=== PATIENT | female | born 1960 | race Caucasian/White ===

== ENCOUNTER 2019-06-05 15:53 | Inpatient (IN) ==
[2019-06-05] MEDS ORDERED: Acetaminophen 325 MG TABLET PO PRN (17:34)
[2019-06-05] MEDS ORDERED: *HR* FentaNYL (PF) 100 MCG/2 ML VIAL IVP PRN (17:34)
[2019-06-05] MEDS ORDERED: Naloxone 0.4 MG/ML INJ IVP PRN (17:34)
--- NOTE | 2019-06-05 17:58 | Internal Med History&Physical ---
Date of Encounter: 06/05/19 Time of Encounter: 17:50 Internal Medicine - H&P: HPI Chief complaint: Epigastric pain, CP, melena Admitted From: Hospital to Hospital Transfer Plans for Post Hospital Care: Home History of present illness: Ms. Fam is a 58 year old female who presents in transfer from [facility] ER for concerns of acute GI bleed. Her initial symptoms were chest tightness, dyspnea on exertion, and epigastric pain radiating to her right scapula. Workup at [place] revealed patient to have a hgb of 5.8. Three weeks prior, her hemoglobin was 14. Her MCV is normal. All these numbers imply acute blood loss. She reported a history of melena for roughly 1 week. She denied any hematemesis, hematochezia, coffee-ground emesis, hematuria, or nosebleeds. Of note, she had hysterectomy several years ago, and, as such, has no postmenopausal bleeding. I was contacted to transfer the patient here from [facility] and I accepted the patient in transfer. Upon arrival, I saw patient in the ICU room. She has stable blood pressure and her heart rate is in the low 90s to low 100s. She is little pale but otherwise in no distress. She denies any chest pain or shortness of breath now. However, she does confirm some slight epigastric pain radiating to her right shoulder blade. She denies any excessive NSAID use, alcohol use, or excessive caffeine use. She does take a daily aspirin and uses Fosamax once a month for osteoporosis treatment. She has had several EGDs in the past, last one being 04/07/2019. These were negative for any upper GI source of bleeding. She did have a colonoscopy about 2 years ago which was negative as well. She has been on Xarelto for roughly 3 years for treatment of her atrial fibrillation. She denies any trauma or injury to her abdomen or pelvis. She is receiving 1 unit of blood right now from [facility]. Past Med Surg Social Fam HX - Past Medical History Attestation: Yes The following information was validated with the patient. Source: patient, old records reviewed, other (discussion with [facility] staff) Medical history: diabetes, renal disease, GERD, myocardial infarction, atrial fibrillation, hyperlipidemia, hypertension, cardiomyopathy, CHF Additional medical history: CKD Stage III Psychiatric history: anxiety, depression - Past Surgical History Surgical History: appendectomy, cholecystectomy, hysterectomy, orthopedic, other, pacemaker/AICD Additional surgical history: left wrist cyst - heel spur - EGD, [facility] - Social History Smoking Status: Former smoker Smokeless Tobacco Status: No Alcohol use: none Drug use: none Current living situation: Home Activity Level: Independent ambulation Recent Out of Country Travel Within the Last 8 Weeks: No - Family History Brother Living Status: Still Living Hx Family Cardiac Disorders: Yes (CABG) Hx Family Cancer: Yes ((possibly brain)) Mother Family Member Ethnicity: Non- Living Status: Still Living Hx Family Cardiac Disorders: Yes Hx Family Endocrine Disorder: Yes (diabetes) Father Family Member Ethnicity: Non- Living Status: Hx Family Cardiac Disorders: Yes (heart disease) Hx Family Cancer: Yes (CO, CABGx2) Hx Family Endocrine Disorder: Yes (diabetes) Hx Family Autoimmune Disorders: Yes (dementia) Internal Medicine - H&P: Meds Alendronate Sodium [Fosamax] 70 mg PO MO 12/07/17 [History] LORazepam [Ativan] 0.5 mg PO HS PRN 10/06/18 [History] Atorvastatin [Lipitor] 40 mg PO HS 10/15/18 [History] Carvedilol [Coreg] 12.5 mg PO BID 10/15/18 [History] Isosorbide MONOnitrate [Isosorbide Mononitrate ER] 30 mg PO DAILY 10/15/18 [History] Ranitidine HCl [Heartburn Relief] 150 mg PO BID PRN 10/15/18 [History] Aspirin [Adult Aspirin Regimen] 81 mg PO QAM 01/17/19 [History] BuPROPion XL (24 HR) [Wellbutrin Xl] 150 mg PO DAILY 01/17/19 [History] Furosemide [Lasix] 80 mg PO AD PRN 01/17/19 [History] GlipiZIDE [Glucotrol] 5 mg PO BID 01/17/19 [History] Polyethylene Glycol 3350 [MiraLax bowel prep] 17 gm PO DAILY 01/17/19 [History] Potassium Chloride 20 meq PO BID 01/17/19 [History] Rivaroxaban [Xarelto] 15 mg PO HS 01/17/19 [History] Sacubitril/Valsartan 97/103 MG [Entresto 97 mg-103 mg Tablet] 1 tab PO BID 01/17/19 [History] Tizanidine HCl 4 mg PO BID PRN 01/17/19 [History] Furosemide [Lasix] 40 mg PO DAILY #30 tablet 01/23/19 [Rx] hydrALAZINE [HydrALAZINE] 25 mg PO TID PRN #60 tablet 01/23/19 [Rx] Allergy/AdvReac Type Severity Reaction Status Date / Time Tetanus Vaccines and Toxoid Allergy See Verified 04/26/19 09:33 [Tetanus Vaccines & Toxoid] Comments diphenhydramine AdvReac See Verified 04/26/19 09:33 [From Benadryl] Comments morphine AdvReac Itching, Verified 04/26/19 09:33 HEART RACES - Constitutional Constitutional: fatigue, malaise, weakness, no chills, no fever(s), no weight gain, no weight loss - EENT Eyes: no blurry vision, no change in vision Ears: no ear pain Nose, mouth and throat: no epistaxis, no nasal congestion, no sore throat - Cardiovascular Cardiovascular ROS IM: chest pain, dyspnea on exertion, lightheadedness, no dyspnea, no orthopnea, no paroxysmal nocturnal dyspnea, no syncope - Respiratory Respiratory: dyspnea on exertion, no cough, no hemoptysis, no chest congestion, no excessive phlegm production, no change in phlegm color - Gastrointestinal Gastrointestinal: abdominal pain (epigastric radiating to right shoulder blade), constipation, heartburn, melena, no coffee ground emesis, no diarrhea, no hematemesis, no hematochezia, no vomiting - Genitourinary Genitourinary: no dysuria, no flank pain, no hematuria - Musculoskeletal Musculoskeletal ROS IM: no arthralgias, no back pain - Integumentary Integumentary IM: no erythema, no rash, no unusual bruising, no jaundice - Neurological Neurological ROS: dizziness, no focal weakness, no frequent falls, no headache(s) - Psychiatric Psychiatric: no anxiety, no confusion - Endocrine Endocrine IM: no polydipsia, no polyphagia, no polyuria - Hematologic/Lymphatic Hematologic/Lymphatic: easy bruising - Allergic/Immunologic Allergic/Immunologic: GI upset with certain foods - Constitutional Vitals: Pulse Resp BP Pulse Ox 92 18 156/92 99 06/05/19 17:10 06/05/19 17:07 06/05/19 17:07 06/05/19 17:07 General appearance: Present: cooperative, mild distress, A&O X 3, pleasant, answers questions appropriately Exam: pale in complexion; minimal epigastric pain - Head Head exam: Present: atraumatic, normal inspection - Eye Eye exam: Present: EOMI, PERRL. Absent: scleral icterus, conjuntiva pink (pale) Pupils: Present: normal accommodation - ENT ENT exam: Present: mucous membranes dry, normal exam, normal oropharynx - Neck Neck exam general surgery: Present: full ROM, supple, trachea midline. Absent: lymphadenopathy, tenderness, nuchal rigidity, thyromegaly - Respiratory Respiratory exam: Present: CTAB. Absent: chest wall tenderness, rales, rhonchi, wheezes - Cardiovascular Cardiovascular exam: Present: RRR, +S1, +S2. Absent: diastolic murmur, systolic murmur - GI/Abdominal GI/Abdominal exam: Present: normal bowel sounds, soft, tenderness (epigastric), no peritoneal signs. Absent: distended, guarding, hepatomegaly, mass, rebound, splenomegaly - Extremities Exam Extremities exam: Present: full ROM, normal capillary refill (~ 2-3 seconds), warm, radial pulses palpable and symmetrical. Absent: calf tenderness, joint swelling, pedal edema, tenderness - Back Exam Back exam: Absent: CVA tenderness (L), CVA tenderness (R) Additional comments: pain around right scapula - Neurological Exam Neurological exam: Present: alert, CN II-XII intact, oriented X3, reflexes normal, strengths equal and symetr throughout. Absent: motor sensory deficit - Psychiatric Psychiatric exam: Present: normal affect, normal mood - Skin Skin exam: Present: dry, intact, pallor, warm Internal Med - H&P Results - Labs Labs: I reviewed the labs from [facility] and include the following: WBC 6.9 Hemoglobin 5.8 Hematocrit 18.6 Platelets 344 PT 11.7 INR 1.0 PTT 32.7 Sodium 142 Potassium 3.7 Chloride 107 CO2 26 BUN 15 BUN 1.22 - EKG Data -: EKG Interpreted by Myself - EKG Data Prior EKG available for review: yes When compared to previous EKG: there is no significant change EKG comments: 06/05/19 18:09 ventricular paced rhythm - Diagnostic Studies Chest x-ray Status: image reviewed by me (negative) - Assessment and Plan (1) Acute blood loss anemia Current Visit: Yes Status: Acute Assessment and plan: 1. Patient received one unit PRBC (still transfusing) from [place]. 2. Will order STAT labs, Type and Cross, and transfuse 2 more units PRBC's. 3. Will monitor H/H Q6H and monitor clinically in ICU. 4. STAT CT Abdomen/Pelvis to assess for abdominal pain in the setting of GI bleed and anticoagulation. 5. Last Xarelto dose was ~ 24 hours ago. (2) GI bleed Current Visit: Yes Status: Suspected Assessment and plan: 1. Start Protonix and Octreotide drips. 2. Care as above. 3. Consult Acute Care surgery for possible EGD and/or further intervention -- discussed with Dr. Blandon. Qualifiers: GI bleed type/associated pathology: gastroduodenitis Qualified Code(s): K29.91 - Gastroduodenitis, unspecified, with bleeding (3) Chest pain Current Visit: Yes Status: Acute Assessment and plan: 1. Likely due to demand ischemia from acute blood loss. 2. Transfuse PRBC to maintain hgb ~ 10. 3. Will trend troponins and EKG's. 4. Patient reports h/o non-ischemic cardiomyopathy; reports history of normal coronary arteries. However, I have no records to confirm that. Qualifiers: Chest pain type: chest pain due to myocardial ischemia Ischemic chest pain type: stable angina pectoris Qualified Code(s): I20.8 - Other forms of angina pectoris (4) Diabetes mellitus Current Visit: Yes Status: Chronic Assessment and plan: 1. Will monitor glucose closely and order SSI. 2. Adjust insulin dosing accordingly. Qualifiers: Diabetes mellitus type: type 2 Diabetes mellitus jail insulin use: without jail use Diabetes mellitus complication status: without complication Qualified Code(s): E11.9 - Type 2 diabetes mellitus without complications (5) DVT prophylaxis Current Visit: Yes Status: Acute Assessment and plan: 1. EPCD's. - Time Spent With Patient Greater than 35 minutes
[2019-06-05] MEDS ORDERED: D5% in Water 1,000 ML IVC PRN (18:10)
[2019-06-05] MEDS ORDERED: *HR* Dextrose 50 % in Water (Syg) 50 ML SYRINGE IVP PRN (18:10)
[2019-06-05] MEDS ORDERED: Dextrose Gel 15 GM/37.5 ML TUBE PO PRN ×2 (18:10)
[2019-06-05] MEDS: Pantoprazole 40 MG in 0.9 % Sodium Chloride Mini Bag 100 ML IVC SCH ×2 (18:24→22:45)
[2019-06-05] MEDS: Octreotide 400 MCG in 0.9 % Sodium Chloride 100 ML IVC SCH (18:24)
[2019-06-05 18:30] LABS: Basophils % 0.5 %; Eosinophils # 0.1 K/mcL (0.0-0.6); Hematocrit 20.6 % (35.3-44.9); Hemoglobin 6.4 g/dL (11.5-15.4); Immature Granulocytes % 0.5 % (0-4); Lymphocytes # 1.3 K/mcL (0.6-4.6); Lymphocytes % 20.1 %; Mean Corpuscular HGB Conc 31.1 g/dL (31.6-35.5); Mean Corpuscular Hemoglobin 29.6 pg (28.0-33.3); Mean Corpuscular Volume 95.4 fL (83.0-100.0); Mean Platelet Volume 9.6 fL (9.4-12.4); Monocytes # 0.4 K/mcL (0.0-1.3); Monocytes % 5.4 %; Neutrophils # 4.7 K/mcL (1.6-8.9); Platelet Count 327 K/mcL (140-400); Red Blood Count 2.16 M/mcL (3.82-4.97); Segmented Neutrophils % 71.5 %; White Blood Count 6.5 K/mcL (4.3-11.1)
[2019-06-05 18:41] LABS: Prothrombin Time 11.6 Seconds (9.4-12.1)
[2019-06-05 18:43] LABS: Activated Partial Thrombo Time 31.7 Seconds (26.0-36.0)
[2019-06-05 18:50] LABS: Albumin 3.8 g/dL (3.5-5.7); Albumin/Globulin Ratio 1.9 (1.1-2.2); Bilirubin,Total 0.5 mg/dL (0.3-1.0); Calcium 8.6 mg/dL (8.6-10.3); Phosphorous 3.7 mg/dL (2.7-4.5); Potassium 3.7 mEq/L (3.5-5.1); Total Protein 5.8 g/dL (6.4-8.9)
[2019-06-05] MEDS ORDERED: 0.9 % Sodium Chloride 250 ML ONE ×2 (20:46→23:54)
[2019-06-05] MEDS ORDERED: *HR* LORazepam 2 MG/ML VIAL IVP ONE (22:36)
[2019-06-06] MEDS: Insulin LISPRO 300 UNITS/3 ML VIAL SQ SCH ×6 (00:09→23:07)
[2019-06-06] MEDS ORDERED: *HR* LORazepam 0.5 MG TABLET PO ONE ×2 (00:13→07:38)
[2019-06-06] MEDS: Pantoprazole 40 MG in 0.9 % Sodium Chloride Mini Bag 100 ML IVC SCH ×4 (04:05→19:49)
[2019-06-06 05:27] LABS: Hemoglobin 8.6 g/dL (11.5-15.4)
[2019-06-06 05:31] LABS: Calcium 8.4 mg/dL (8.6-10.3)
[2019-06-06] MEDS: Octreotide 400 MCG in 0.9 % Sodium Chloride 100 ML IVC SCH ×3 (06:46→17:16)
[2019-06-06] MEDS ORDERED: *HR* LORazepam 0.5 MG TABLET ONE (07:40)
--- NOTE | 2019-06-06 08:29 | Internal Med Progress Note ---
Hospitalist Progress Note - Encounter Date of Encounter: 06/06/19 Time of Encounter: 08:21 - Subjective Interval History: 58-year-old female with a history of chronic atrial fibrillation on Xarelto as well as aspirin. Patient was admitted to our facility on transfer from [place] emergency room for GI bleed. She has a baseline hemoglobin of around 14, follow [facility] was noted to have a hemoglobin of 5.8, normocytic in nature. Patient did relate that last week she had about a 3 day episode of multiple dark stools. She does not know when her last bowel movement was, although states she has not had a home now for several days. She also complains of epigastric pain. Patient had an EGD done in March 2019, which was negative. She also had a colonoscopy 2 years ago which by report was negative. She has received 3 units of packed red blood cells since presented [place] emergency room. Hemoglobin this morning is 8.6. Vitals are stable. Patient continues to have epigastric discomfort, described as a mild ache which is been persistent for several days. She did have some chest discomfort prior to arrival which is resolved after receiving blood. She has no fevers or chills. No nausea or vomiting. Mentioned she has had no bowel movement for several days which she states is not unusual for her. Patient states she does feel anxious this morning, and is requesting Ativan which she states she takes at home. Patient is to be seen by gastroenterology today. She continues on Protonix as well as octreotide. Patient is stable to transfer to a general medical bed. She did have a CT scan abdomen and pelvis done without contrast, on admission which showed no acute abnormality. - Exam Vitals: Temp Pulse Resp BP Pulse Ox 97.9 F 60 18 146/90 97 06/06/19 07:14 06/06/19 07:00 06/06/19 07:00 06/06/19 07:00 06/06/19 07:00 Exam: General: She is mildly anxious but pleasant and conversant She is mildly obese Skin is warm and dry, mild pallor Oropharynx is moist Neck is supple Heart is irregular rhythm Lungs CTAB Abd - soft + Bs, epig ttp Ext no edema, cap refill <2.5 sec Neuro nonfocal - Assessment and Plan (1) Acute blood loss anemia Current Visit: Yes Status: Acute Assessment and Plan: GI bleed with acute blood loss anemia -Patient is hemodynamically stable after transfusion of 3 units of packed blood cells -It does appear her bleeding has stopped for the time being, GI is consulted -cotninue Protonix and octreotide -Continue to monitor hemoglobin and transfuse as needed Epigastric pain -? If related to abdominal pathology, although CT scan is negative -? Could be gastritis and/or ulcer Anxiety -ativan when necessary, monitor Chest Pain -Suspect due to anemia -She denies history of coronary disease. Recommend future stress test Diabetes mellitus type 2 -Continue sliding scale insulin Patient to be transferred to general medical bed with close observation, telemetry (2) GI bleed Current Visit: Yes Status: Inactive (3) Chest pain Current Visit: Yes Status: Acute (4) Diabetes mellitus Current Visit: Yes Status: Chronic (5) DVT prophylaxis Current Visit: Yes Status: Acute - Time Spent with Patient Total time spent is greater than 50% in coordination of care (as documented) at patient's floor/unit and/or counseling patient: Internal Medicine: Result - Labs CBC & Chem 7: 06/06/19 04:55 06/06/19 04:55 Labs: Short CBC 06/05/19 06/06/19 Range/Units 18:15 04:55 WBC 6.5 (4.3-11.1) K/mcL Hgb 6.4 L 8.6 L D (11.5-15.4) g/dL Hct 20.6 L 27.0 L (35.3-44.9) % Plt Count 327 (140-400) K/mcL Neutrophils # 4.7 (1.6-8.9) K/mcL BMP 06/05/19 06/06/19 18:15 04:55 Sodium 140 139 Potassium 3.7 5.0 D Chloride 113 H 114 H Carbon Dioxide 22 L 23 BUN 15 14 Creatinine 1.19 1.29 H Glucose 103 133 H Calcium 8.6 8.4 L Cardiac Enzymes 06/05/19 06/06/19 Range/Units 18:15 04:55 Troponin I < 0.03 < 0.03 (< 0.04) ng/mL Liver Function 06/05/19 Range/Units 18:15 Total Bilirubin 0.5 (0.3-1.0) mg/dL AST 12 L (13-39) Units/L ALT 10 (7-52) Units/L Alkaline Phosphatase 65 (34-104) Units/L Albumin 3.8 (3.5-5.7) g/dL - ABG Interpretation ABG results: PT/INR, D-dimer PT 11.6 Seconds (9.4-12.1) 06/05/19 18:15 - Impressions Impressions Abdomen/Pelvis CT 06/05/19 20:53 IMPRESSION: 1. No acute abnormality in the abdomen or pelvis. 2. Status post cholecystectomy and hysterectomy. D/ / Braulio Connolly MD / Braulio Connolly MD Interpreting Provider: Braulio Connolly MD Consult Discharge Plan - Plan Referrals: Nidia Galloway [Primary Care Provider] - (2) GI bleed Qualifiers: GI bleed type/associated pathology: gastroduodenitis Qualified Code(s): K29.91 - Gastroduodenitis, unspecified, with bleeding (3) Chest pain Qualifiers: Chest pain type: chest pain due to myocardial ischemia Ischemic chest pain type: stable angina pectoris Qualified Code(s): I20.8 - Other forms of angina pectoris (4) Diabetes mellitus Qualifiers: Diabetes mellitus type: type 2 Diabetes mellitus long term care pharmacist insulin use: without long term care pharmacist use Diabetes mellitus complication status: without complication Qualified Code(s): E11.9 - Type 2 diabetes mellitus without complications
[2019-06-06] MEDS ORDERED: *HR* FentaNYL (PF) 100 MCG/2 ML VIAL IVP ONE (08:34)
[2019-06-06 09:13] LABS: Estimated Average Glucose 91 mg/dl
[2019-06-06] MEDS ORDERED: *HR* FentaNYL (PF) 100 MCG/2 ML VIAL ONE (09:53)
[2019-06-06] MEDS ORDERED: *HR* Midazolam HCl 5 MG/5 ML VIAL IVP ONE (09:54)
[2019-06-06] MEDS ORDERED: *HR* Propofol 200 MG/20 ML VIAL IVP ONE (09:55)
[2019-06-06] MEDS ORDERED: Lidocaine -MPF 2% 2 ML VIAL ONE (09:55)
--- NOTE | 2019-06-06 10:24 | AcuteCare Surgery Consult Note ---
Date of Encounter: 06/06/19 Time of Encounter: 09:25 Assessment and Plan (1) Acute anemia Current Visit: Yes Status: Acute Recommend upper endoscopy. Procedure, risk and benefits of upper endoscopy are discussed. Pt understands risks and possible complications. Possible complications include but, are not limited to bleeding, infection or perforation. Pt understands and wishes to proceed as recommended. Consent is obtained. Inpatient upper endoscopy is scheduled. (2) Epigastric pain Current Visit: Yes Status: Acute Pt on PPI gtt (3) Hypertension Current Visit: No Status: Chronic Qualifiers: Hypertension type: essential hypertension Qualified Code(s): I10 - Essential (primary) hypertension (4) CHF (congestive heart failure) Current Visit: No Status: Chronic Qualifiers: Heart failure type: systolic Heart failure chronicity: chronic Qualified Code(s): I50.22 - Chronic systolic (congestive) heart failure (5) Cardiomyopathy Current Visit: No Status: Chronic Qualifiers: Cardiomyopathy type: unspecified Qualified Code(s): I42.9 - Cardiomyopathy, unspecified History of Present Illness Consult date: 06/06/19 Reason for consult: abdominal pain Requesting physician: Katie Connolly History of present illness: This 58 y/o female is admitted with severe anemia requiring transfusion of 2 units PRBC. Pt also complains of epigastric pain. The epigastric pain is improved since starting PPI gtt. Pt is reporting chest pain that radiates into right shoulder. Denies hematemesis, coffee ground emesis, hematochezia or melena. She denies any N/V or BM changes. Denies fever. Pt reports significant cardiac hx. +pacer/ICD. S/P lap sabas remotely. Past Med Surg Social Fam HX - Past Medical History Medical history: diabetes, renal disease, GERD, myocardial infarction, atrial fibrillation, hyperlipidemia, hypertension, cardiomyopathy, CHF Additional medical history: CKD Stage III Psychiatric history: anxiety, depression - Past Surgical History Surgical History: appendectomy, cholecystectomy, hysterectomy, orthopedic, other, pacemaker/AICD Additional surgical history: left wrist cyst - heel spur - EGD, [place] CARPAL TUNNEL - Social History Smoking Status: Former smoker Smokeless Tobacco Status: No Alcohol use: none Drug use: none - Family History Brother Living Status: Still Living Hx Family Cardiac Disorders: Yes (CABG) Hx Family Cancer: Yes ((possibly brain)) Mother Family Member Ethnicity: Non- Living Status: Still Living Hx Family Cardiac Disorders: Yes Hx Family Endocrine Disorder: Yes (diabetes) Father Family Member Ethnicity: Non- Living Status: Hx Family Cardiac Disorders: Yes (heart disease) Hx Family Cancer: Yes (AR, CABGx2) Hx Family Endocrine Disorder: Yes (diabetes) Hx Family Autoimmune Disorders: Yes (dementia) Medications and Allergies Alendronate Sodium [Fosamax] 70 mg PO MO 12/07/17 [History] LORazepam [Ativan] 0.5 mg PO HS PRN 10/06/18 [History] Atorvastatin [Lipitor] 40 mg PO HS 10/15/18 [History] Carvedilol [Coreg] 12.5 mg PO BID 10/15/18 [History] Isosorbide MONOnitrate [Isosorbide Mononitrate ER] 30 mg PO DAILY 10/15/18 [History] Ranitidine HCl [Heartburn Relief] 150 mg PO BID PRN 10/15/18 [History] Aspirin [Adult Aspirin Regimen] 81 mg PO QAM 01/17/19 [History] Furosemide [Lasix] 80 mg PO AD PRN 01/17/19 [History] GlipiZIDE [Glucotrol] 5 mg PO BID 01/17/19 [History] Polyethylene Glycol 3350 [MiraLax bowel prep] 17 gm PO DAILY 01/17/19 [History] Potassium Chloride 20 meq PO BID 01/17/19 [History] Rivaroxaban [Xarelto] 15 mg PO HS 01/17/19 [History] Sacubitril/Valsartan 97/103 MG [Entresto 97 mg-103 mg Tablet] 1 tab PO BID 01/17/19 [History] Tizanidine HCl 4 mg PO BID PRN 01/17/19 [History] hydrALAZINE [HydrALAZINE] 25 mg PO TID PRN #60 tablet 01/23/19 [Rx] Bupropion HCl [Wellbutrin Xl] 300 mg PO DAILY 06/06/19 [History] Cholecalciferol (D-3) [Vitamin D] 5,000 unit PO DAILY 06/06/19 [History] Sertraline [Zoloft] 150 mg PO DAILY 06/06/19 [History] Allergy/AdvReac Type Severity Reaction Status Date / Time Tetanus Vaccines and Toxoid Allergy See Verified 04/26/19 09:33 [Tetanus Vaccines & Toxoid] Comments diphenhydramine AdvReac See Verified 04/26/19 09:33 [From Benadryl] Comments morphine AdvReac Itching, Verified 04/26/19 09:33 HEART RACES Review of Systems All systems PM: The remainder of the systems were reviewed and are negative - Constitutional as per HPI, fatigue, weakness, no anorexia, no chills, no night sweats - EENT Nose, mouth and throat: no dizziness, no dry mouth, no dysphagia, no nasal congestion, no nasal discharge, no sinus pain, no sinus pressure, no sore throat - Cardiovascular chest pain, chest pain at rest, dyspnea, no diaphoresis, no edema - Respiratory dyspnea, no cough, no wheezing - Gastrointestinal abdominal pain, heartburn, no coffee ground emesis, no constipation, no diarrhea, no hematemesis, no hematochezia, no nausea, no vomiting - Genitourinary Genitourinary: no dysuria, no flank pain, no hematuria, no urinary frequency - Musculoskeletal no back pain, no joint swelling, no limited range of motion, no neck pain - Neurological weakness, no confusion, no dizziness, no focal weakness - Psychiatric no anxiety, no depression - Hematologic/Lymphatic no easy bleeding, no easy bruising General Surgery Exam Initial Vital Signs Pulse Resp BP Pulse Ox 98 18 156/92 99 06/05/19 17:07 06/05/19 17:07 06/05/19 17:07 06/05/19 17:07 - General physical appearance well nourished, no distress, moderate pain. negative: jaundice - Eyes PERRL, normal ocular movement. negative: icteric - ENT normal mucosa, no congestion. negative: nasal discharge - Neck trachea midline, no venous distension - Respiratory normal respiratory effort, clear to auscultation - Cardiovascular Cardiovascular exam: Present: RRR. Absent: JVD - Abdomen Abdomen general surgery: Present: bowel sounds present, soft, tender Abdominal Tenderness: Present: epigastic - Genitourinary Present: normal external genitalia - Integumentary Integumentary general surgery: Present: warm and dry - Neurologic Present: CN 2-12 grossly intact, normal coordination - Musculoskeletal Present: normal posture - Psychiatric Psychiatric general surgery: Present: A&Ox3, appropriate Exam Initial Vital Signs Pulse Resp BP Pulse Ox 98 18 156/92 99 06/05/19 17:07 06/05/19 17:07 06/05/19 17:07 06/05/19 17:07 Results - Labs 06/06/19 04:55 06/06/19 04:55 Abnormal lab results RBC 2.16 M/mcL (3.82-4.97) L 06/05/19 18:15 Hgb 8.6 g/dL (11.5-15.4) L D 06/06/19 04:55 Hct 27.0 % (35.3-44.9) L 06/06/19 04:55 MCHC 31.1 g/dL (31.6-35.5) L 06/05/19 18:15 RDW 15.0 % (11.5-14.5) H 06/05/19 18:15 Chloride 114 mEq/L (98-107) H 06/06/19 04:55 Carbon Dioxide 22 mEq/L (23-29) L 06/05/19 18:15 Creatinine 1.29 mg/dL (0.60-1.20) H 06/06/19 04:55 Est GFR ( Amer) 52 (> 60) L 06/06/19 04:55 Est GFR (Non-Af Amer) 43 (> 60) L 06/06/19 04:55 Glucose 133 mg/dL (70-105) H 06/06/19 04:55 POC Glucose 159 mg/dL (70-99) H 06/06/19 00:05 Calcium 8.4 mg/dL (8.6-10.3) L 06/06/19 04:55 AST 12 Units/L (13-39) L 06/05/19 18:15 Serum Total Protein 5.8 g/dL (6.4-8.9) L 06/05/19 18:15 Globulin 2.0 g/dL (2.4-3.5) L 06/05/19 18:15 Crossmatch See Detail 06/05/19 18:15 Diabetes panel 06/05/19 06/05/19 06/06/19 Range/Units 18:15 18:17 04:55 Sodium 140 139 (136-145) mEq/L Potassium 3.7 5.0 D (3.5-5.1) mEq/L Chloride 113 H 114 H (98-107) mEq/L Carbon Dioxide 22 L 23 (23-29) mEq/L BUN 15 14 (6-20) mg/dL Creatinine 1.19 1.29 H (0.60-1.20) mg/dL Glucose 103 133 H (70-105) mg/dL Hemoglobin A1c 4.8 ( - 5.6) % Calcium 8.6 8.4 L (8.6-10.3) mg/dL AST 12 L (13-39) Units/L ALT 10 (7-52) Units/L Alkaline Phosphatase 65 (34-104) Units/L Albumin 3.8 (3.5-5.7) g/dL Calcium panel 06/05/19 06/06/19 Range/Units 18:15 04:55 Calcium 8.6 8.4 L (8.6-10.3) mg/dL Phosphorus 3.7 (2.7-4.5) mg/dL Albumin 3.8 (3.5-5.7) g/dL Pituitary panel 06/05/19 06/06/19 Range/Units 18:15 04:55 Sodium 140 139 (136-145) mEq/L Potassium 3.7 5.0 D (3.5-5.1) mEq/L Chloride 113 H 114 H (98-107) mEq/L Carbon Dioxide 22 L 23 (23-29) mEq/L BUN 15 14 (6-20) mg/dL Creatinine 1.19 1.29 H (0.60-1.20) mg/dL Glucose 103 133 H (70-105) mg/dL Calcium 8.6 8.4 L (8.6-10.3) mg/dL Adrenal panel 06/05/19 06/06/19 Range/Units 18:15 04:55 Sodium 140 139 (136-145) mEq/L Potassium 3.7 5.0 D (3.5-5.1) mEq/L Chloride 113 H 114 H (98-107) mEq/L Carbon Dioxide 22 L 23 (23-29) mEq/L BUN 15 14 (6-20) mg/dL Creatinine 1.19 1.29 H (0.60-1.20) mg/dL Glucose 103 133 H (70-105) mg/dL Calcium 8.6 8.4 L (8.6-10.3) mg/dL Total Bilirubin 0.5 (0.3-1.0) mg/dL AST 12 L (13-39) Units/L ALT 10 (7-52) Units/L Alkaline Phosphatase 65 (34-104) Units/L Albumin 3.8 (3.5-5.7) g/dL All other labs normal. - Imaging CT scan - abdomen: image reviewed (No acute abnormality in the abdomen or pelvis. Status post cholecystectomy and hysterectomy.) CT scan - pelvis: image reviewed Consult Discharge Plan - Plan Referrals: Nidia Galloway [Primary Care Provider] -
--- NOTE | 2019-06-06 10:38 | Anesthesia Evaluation PreOp ---
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 History: Denies Any Significant HX Other Medical History: Other (epigastric pain) Anesthesia History: No Prior Anesthetic Complications, Past Anesthesia : No Alcohol Use: none Drug use: none Medications and Allergies Alendronate Sodium [Fosamax] 70 mg PO MO 12/07/17 [History] LORazepam [Ativan] 0.5 mg PO HS PRN 10/06/18 [History] Atorvastatin [Lipitor] 40 mg PO HS 10/15/18 [History] Carvedilol [Coreg] 25 mg PO BID 10/15/18 [History] Isosorbide MONOnitrate [Isosorbide Mononitrate ER] 30 mg PO DAILY 10/15/18 [History] Ranitidine HCl [Heartburn Relief] 150 mg PO BID PRN 10/15/18 [History] Aspirin [Adult Aspirin Regimen] 81 mg PO QAM 01/17/19 [History] Furosemide [Lasix] 80 mg PO DAILY 01/17/19 [History] GlipiZIDE [Glucotrol] 5 mg PO BID 01/17/19 [History] Polyethylene Glycol 3350 [MiraLax bowel prep] 17 gm PO DAILY 01/17/19 [History] Potassium Chloride 20 meq PO BID 01/17/19 [History] Rivaroxaban [Xarelto] 15 mg PO HS 01/17/19 [History] Sacubitril/Valsartan 97/103 MG [Entresto 97 mg-103 mg Tablet] 1 tab PO BID 01/17/19 [History] Tizanidine HCl 4 mg PO BID PRN 01/17/19 [History] hydrALAZINE [HydrALAZINE] 25 mg PO TID PRN #60 tablet 01/23/19 [Rx] Bupropion HCl [Wellbutrin Xl] 300 mg PO DAILY 06/06/19 [History] Cholecalciferol (D-3) [Vitamin D] 5,000 unit PO DAILY 06/06/19 [History] Sertraline [Zoloft] 150 mg PO DAILY 06/06/19 [History] Allergy/AdvReac Type Severity Reaction Status Date / Time Tetanus Vaccines and Toxoid Allergy See Verified 04/26/19 09:33 [Tetanus Vaccines & Toxoid] Comments diphenhydramine AdvReac See Verified 04/26/19 09:33 [From Benadryl] Comments morphine AdvReac Itching, Verified 04/26/19 09:33 HEART RACES - Meds/Allergy Pre-op Review Medications Reviewed: Yes Allergies Reviewed: Yes Beta Blockers on Current Med List: Yes (carvedilol) Anesthesia Results - Labs 06/06/19 04:55 06/06/19 04:55 - Imaging EKG: report reviewed Additional studies: 12/2018 limited echocardiogram Impressions: LVEF 40-45 %. Moderate global left ventricular systolic dysfunction. Atypical septal motion consistent with bundle branch block. Mildly dilated left ventricle. Moderately dilated left atrium. The pericardium appears normal. A device lead was visualized in the right atrium and right ventricle. Anesthesia Exam Vital Signs/O2 Sat/Glucose, Most Recent Temp Pulse Resp BP Pulse Ox 98.0 F 65 18 167/81 100 06/06/19 10:33 06/06/19 10:33 06/06/19 10:33 06/06/19 10:33 06/06/19 10:33 Blood Glucose* 159 Weight: 68 kg NPO (# of Hours): > 8 - HEENT Pupil (Motor): Pupils equal Mallampati: III Teeth: Normal - VALVE REPAIRER RECLAMATION LOC: Oriented VALVE REPAIRER RECLAMATION Motor: Normal RUE, Normal LUE, Normal RLE, Normal LLE, Normal Face VALVE REPAIRER RECLAMATION Sensory: Normal: RUE, LUE, RLE, LLE, Face - Cardiac Rhythm: Regular Murmur: None - Pulmonary Breath Sounds: bilateral Clear Respiratory Effort: Symmetrical Anesthesia Assess/Plan ASA Score: 4 Level of consciousness: Cooperative, Oriented Anesthetic Plan: MAC Monitoring Plan: Standard Monitors Recovery Plan: PACU
--- NOTE | 2019-06-06 11:05 | Acute Care Surgery Event Note ---
Date of Encounter: 06/06/19 Time of Encounter: 11:00 Pt underwent EGD which reveals a gastric ulcer with oozing. Ulcer is cauterized and oozing subsided. Recommend continued PPI. Clear liquids OK. Follow H&H to ensure stability. No colonoscopy is needed at this time. However, colonoscopy is recommended on outpt basis. Thank you for allowing us to participate in this patient's care. Surgery signing off.
--- NOTE | 2019-06-06 12:54 | Anesthesia Evaluation Post Op ---
Date of Encounter: 06/06/19 Time of Encounter: 12:54 - Vital Signs Vital Signs: Vital Signs/O2 Sat/Glucose, Most Recent Temp Pulse Resp BP Pulse Ox 97.6 F 56 18 134/84 91 06/06/19 11:23 06/06/19 11:23 06/06/19 11:23 06/06/19 11:23 06/06/19 11:23 Blood Glucose* 138 - Lungs Lungs: Clear Ascult./Percussion - Airway Airway: Non-obstructed - Cardiovascular Regular Rate - Mental Status Mental Status: Alert & Oriented, Answers Appropriately - Pain Pain Scale: 0 - Nausea Vomiting Nausea Vomiting: Not Present - Hydration Hydration: NPO - Discharge PostOp Status: Transfer Patient to floor
[2019-06-06] MEDS: Ondansetron 4 MG/2 ML VIAL IVP PRN (14:27)
[2019-06-06 14:48] LABS: Hematocrit 27.2 % (35.3-44.9); Hemoglobin 8.6 g/dL (11.5-15.4)
[2019-06-06] MEDS: *HR* HYDROcodone/Acet 5/325 mg TABLET PO PRN ×2 (15:10→19:49)
[2019-06-06 18:32] LABS: Hematocrit 28.2 % (35.3-44.9); Hemoglobin 8.9 g/dL (11.5-15.4)
--- NOTE | 2019-06-06 21:21 | Electrocardiograph Report ---
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
--- NOTE | 2019-06-06 21:38 | Electrocardiograph Report ---
[place] [id number] Test Date: 2019-06-06 Pat Name: Lubna Fam Department: 109 Room: 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
[2019-06-07] MEDS: Pantoprazole 40 MG in 0.9 % Sodium Chloride Mini Bag 100 ML IVC SCH ×2 (00:29→05:46)
[2019-06-07] MEDS: *HR* HYDROcodone/Acet 5/325 mg TABLET PO PRN ×5 (00:35→21:19)
[2019-06-07] MEDS: Insulin LISPRO 300 UNITS/3 ML VIAL SQ SCH ×6 (01:02→22:02)
[2019-06-07 01:22] LABS: Hematocrit 27.3 % (35.3-44.9); Hemoglobin 8.4 g/dL (11.5-15.4)
[2019-06-07] MEDS ORDERED: Octreotide 400 MCG in 0.9 % Sodium Chloride 100 ML IVC SCH (06:15)
[2019-06-07] MEDS ORDERED: *HR* LORazepam 0.5 MG TABLET PO PRN (08:49)
[2019-06-07] MEDS ORDERED: tiZANidine 4 MG TABLET PO PRN (08:49)
[2019-06-07] MEDS ORDERED: Famotidine 20 MG TABLET PO PRN ×2 (08:49→10:45)
[2019-06-07] MEDS: BuPROPion XL (24 HR) 150 MG TABLET PO SCH (09:20)
[2019-06-07] MEDS: Cholecalciferol (D-3) 1,000 UNIT (25MCG) TABLET PO SCH (09:20)
[2019-06-07] MEDS: Ondansetron 4 MG/2 ML VIAL IVP PRN ×2 (09:24→16:58)
[2019-06-07 09:29] LABS: Hematocrit 28.1 % (35.3-44.9); Hemoglobin 8.8 g/dL (11.5-15.4)
[2019-06-07 09:46] LABS: Calcium 8.6 mg/dL (8.6-10.3); Potassium 4.3 mEq/L (3.5-5.1)
--- NOTE | 2019-06-07 10:43 | Internal Med Progress Note ---
Hospitalist Progress Note - Encounter Date of Encounter: 06/07/19 Time of Encounter: 09:40 - Subjective Interval History: No major events overnight. Patient was seen this a.m. SHe denied fever, chills or night sweats. SHe has no nausea, vomiting or abdominal pain. Patient denied chest pain, shortness of breath or palpitation. - Exam Vitals: Temp Pulse Resp BP Pulse Ox 98.7 F 64 18 144/73 94 06/07/19 07:11 06/07/19 07:11 06/07/19 07:11 06/07/19 07:11 06/07/19 07:11 Exam: General: Patient is alert, oriented 3. Head: Atraumatic, normal inspection, normocephalic. Eye: EOMI, PERRLA, ENT: Mucous membranes moist. Neck: Normal inspection. Respiratory: No respiratory distress, rhonchi, or wheezes noted. Cardiovascular: Regular rate and regular rhythm, GI: Soft, nondistended, normal bowel sounds. Extremities:No joint swelling, pedal edema, or tenderness noted. Neurological: Alert, oriented 3, no focal deficits. Psychiatric: normal affect, normal mood. Skin: Dry, intact, warm. Normal color. No rashes. - Assessment and Plan (1) Gastric ulcer Current Visit: Yes Status: Resolved (2) Acute blood loss anemia Current Visit: Yes Status: Resolved (3) Diabetes mellitus Current Visit: Yes Status: Chronic (4) ICD (implantable cardioverter-defibrillator) in place Current Visit: Yes Status: Chronic (5) Atrial fibrillation Current Visit: No Status: Chronic (6) HFrEF (heart failure with reduced ejection fraction) Current Visit: No Status: Chronic - Summary of Assessment and Plan Summary of Assessment and Plan: 58 year old female with history of nonischemic cardiomyopathy, ICD, atrial fibrillation who was managing the ICU for acute blood loss anemia. Acute blood loss anemia: Resolved, hemoglobin is stable. Check Iron profile and ferritin tomorrow. EGD with finding of oozing gastric ulcer with adherent clot. Patient now on PPI twice daily and Carafate. Stop aspirin AND xaerlto. His diet to regular diet. She will require repeat EGD and colonoscopy as outpatient likely in a month. A.fib: she is on Coreg 25 bid at home, will start with 12.5 mg bid and uptitrate as tolerated. Hold xeralto SARA on CKD stage III: Cr is improving, continue to hold lasix, ACEi. NICM with EF 45% s/p ICD: Continue Lipitor, hold Lasix, ACEi for today, carries on tomorrow based on kidney's function. Type II DM: Hold oral medication, continue with low-dose sliding scale insulin. Constipation: Continue MiraLAX. - Time Spent with Patient Total time spent is greater than 50% in coordination of care (as documented) at patient's floor/unit and/or counseling patient: Plan of Care Discussed with: patient Internal Medicine: Result - Labs CBC & Chem 7: 06/07/19 08:58 06/07/19 08:58 Labs: Short CBC 06/06/19 06/06/19 06/07/19 Range/Units 14:20 18:01 00:33 Hgb 8.6 L 8.9 L 8.4 L (11.5-15.4) g/dL Hct 27.2 L 28.2 L 27.3 L (35.3-44.9) % 06/07/19 Range/Units 08:58 Hgb 8.8 L (11.5-15.4) g/dL Hct 28.1 L (35.3-44.9) % BMP 06/07/19 08:58 Sodium 138 Potassium 4.3 Chloride 110 H Carbon Dioxide 21 L BUN 13 Creatinine 1.25 H Glucose 93 Calcium 8.6 Cardiac Enzymes 06/06/19 Range/Units 15:00 Troponin I < 0.03 (< 0.04) ng/mL - ABG Interpretation ABG results: PT/INR, D-dimer PT 11.6 Seconds (9.4-12.1) 06/05/19 18:15 Consult Discharge Plan - Plan Additional Instructions: Please fax discharge info to [phone] Referrals: Obey Bryson MD [Partnered Physician] - 06/29/19 8:00 am Nidia Galloway [Primary Care Provider] - 06/16/19 3:30 pm () (1) Gastric ulcer Qualifiers: Gastric ulcer chronicity: acute Gastric ulcer complication status: with hemorrhage Qualified Code(s): K25.0 - Acute gastric ulcer with hemorrhage (3) Diabetes mellitus Qualifiers: Diabetes mellitus type: type 2 Diabetes mellitus vermin exterminator insulin use: without vermin exterminator use Diabetes mellitus complication status: without complication Qualified Code(s): E11.9 - Type 2 diabetes mellitus without complications (5) Atrial fibrillation Qualifiers: Atrial fibrillation type: paroxysmal Qualified Code(s): I48.0 - Paroxysmal atrial fibrillation (6) HFrEF (heart failure with reduced ejection fraction) Qualifiers: Heart failure chronicity: chronic Qualified Code(s): I50.22 - Chronic systolic (congestive) heart failure
[2019-06-07] MEDS: Sucralfate 1 GM TABLET PO SCH ×3 (11:09→21:19)
[2019-06-07 13:48] LABS: Hematocrit 27.6 % (35.3-44.9); Hemoglobin 8.7 g/dL (11.5-15.4)
--- NOTE | 2019-06-07 16:15 | Electrocardiograph Report ---
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
[2019-06-07] MEDS: Octreotide 400 MCG in 0.9 % Sodium Chloride 100 ML IVC SCH (16:58)
[2019-06-07 17:21] LABS: Hematocrit 28.1 % (35.3-44.9); Hemoglobin 8.9 g/dL (11.5-15.4)
[2019-06-08] MEDS: BuPROPion XL (24 HR) 150 MG TABLET PO SCH (07:21)
[2019-06-08] MEDS: Cholecalciferol (D-3) 1,000 UNIT (25MCG) TABLET PO SCH (07:21)
[2019-06-08] MEDS: Sucralfate 1 GM TABLET PO SCH ×2 (07:22→11:25)
[2019-06-08] MEDS: Insulin LISPRO 300 UNITS/3 ML VIAL SQ SCH (07:22)
[2019-06-08 07:23] VITALS: BP 154/86
[2019-06-08] MEDS: Ondansetron 4 MG/2 ML VIAL IVP PRN (07:37)
[2019-06-08 07:59] LABS: Hematocrit 28.6 % (35.3-44.9); Hemoglobin 8.9 g/dL (11.5-15.4); Mean Corpuscular HGB Conc 31.1 g/dL (31.6-35.5); Mean Corpuscular Hemoglobin 29.8 pg (28.0-33.3); Mean Corpuscular Volume 95.7 fL (83.0-100.0); Mean Platelet Volume 9.5 fL (9.4-12.4); Platelet Count 296 K/mcL (140-400); Red Blood Count 2.99 M/mcL (3.82-4.97); Red Cell Distribution Width 14.8 % (11.5-14.5); White Blood Count 6.1 K/mcL (4.3-11.1)
[2019-06-08 08:19] LABS: % Iron Saturation 5 % (15-50); BUN/Creatinine Ratio 12 (6-26); Blood Urea Nitrogen 13 mg/dL (6-20); Calcium 8.9 mg/dL (8.6-10.3); Carbon Dioxide 23 mEq/L (23-29); Chloride 110 mEq/L (98-107); Glucose 72 mg/dL (70-105); Iron 20 mcg/dL (50-170); Osmolality,Calculated 287 (280-300); Sodium 139 mEq/L (136-145); Transferrin 297 mg/dL (203-362); eGFR For African Americans > 60 (> 60); eGFR For Non-African Americans 50 (> 60)
[2019-06-08 08:36] LABS: Ferritin 18 ng/mL (10-120)
--- NOTE | 2019-06-08 10:29 | Discharge Summary ---
- NOTES TO OUTPATIENT PROVIDER Notes to Outpatient Provider: Patient will need repeat EGD/colonoscopy in 1 month as outpatient Date of Encounter: 06/08/19 Time of Encounter: 10:22 - Discharge Diagnosis (1) Gastric ulcer Priority: Primary Status: Resolved Qualifiers: Gastric ulcer chronicity: acute Gastric ulcer complication status: with hemorrhage Qualified Code(s): K25.0 - Acute gastric ulcer with hemorrhage (2) Acute blood loss anemia Priority: Secondary Status: Resolved (3) Diabetes mellitus Priority: Secondary Status: Chronic Qualifiers: Diabetes mellitus type: type 2 Diabetes mellitus buttermaker continuous churn insulin use: without longterm use Diabetes mellitus complication status: without compl ication Qualified Code(s): E11.9 - Type 2 diabetes mellitus without complications (4) ICD (implantable cardioverter-defibrillator) in place Priority: Secondary Status: Chronic (5) Atrial fibrillation Priority: Secondary Status: Chronic Qualifiers: Atrial fibrillation type: paroxysmal Qualified Code(s): I48.0 - Paroxysmal atrial fibrillation (6) HFrEF (heart failure with reduced ejection fraction) Priority: Secondary Status: Chronic Qualifiers: Heart failure chronicity: chronic Qualified Code(s): I50.22 - Chronic systolic (congestive) heart failure Hospital course: Ms. Fma is a 58 year old female with history of CKD, DM , GERD, SD, Afib, HLD, HTN, CHF presented with concern for upper GI bleed with melena. She required 2 units PRBC. EGD showed oozing gastric ulcer with adherent clot which was cauterized. Patient was started on PPI and carafate. Hb stabilized after EGD and transfusions. Patient's BP was initially low and home meds were held. BP improved. She was started on lower dose of coreg due to HR being on lower end. Patient's entresto was also held initially due ot SARA, likely secondary to dehydration. Renal function improved during stay to baseline. Patient was clinically stable on day of discharge. She was discharged home with prescription for omeprazole and carafate. Her aspirin and lovenox were discontinued. Additionally, her hydralazine was held. PCP will need to reevaluate BP meds. - Time Spent with Patient Total time spent providing and/or coordinating discharge services: 35 minutes - Discharge Medications Prescriptions: New Sucralfate [Carafate] 1 gm PO QIDAC #30 tablet Carvedilol [Coreg] 12.5 mg PO BIDWM #120 tablet Omeprazole [PriLOSEC] 40 mg PO BIDAC #60 capsule. Continued Alendronate Sodium [Fosamax] 70 mg PO MO LORazepam [Ativan] 0.5 mg PO HS PRN PRN Reason: SLEEP/ANXIETY Ranitidine HCl [Heartburn Relief] 150 mg PO BID PRN PRN Reason: GERD Atorvastatin [Lipitor] 40 mg PO HS Isosorbide MONOnitrate [Isosorbide Mononitrate ER] 30 mg PO DAILY GlipiZIDE [Glucotrol] 5 mg PO BID Polyethylene Glycol 3350 [MiraLax bowel prep] 17 gm PO DAILY Potassium Chloride 20 meq PO BID Sacubitril/Valsartan 97/103 MG [Entresto 97 mg-103 mg Tablet] 1 tab PO BID Tizanidine HCl 4 mg PO BID PRN PRN Reason: Muscle Spasm Furosemide [Lasix] 80 mg PO DAILY Bupropion HCl [Wellbutrin Xl] 300 mg PO DAILY Cholecalciferol (D-3) [Vitamin D] 5,000 unit PO DAILY Sertraline [Zoloft] 150 mg PO DAILY Discontinued Carvedilol [Coreg] 25 mg PO BID Rivaroxaban [Xarelto] 15 mg PO HS Aspirin [Adult Aspirin Regimen] 81 mg PO QAM hydrALAZINE [HydrALAZINE] 25 mg PO TID PRN #60 tablet PRN Reason: Hypertension Home Medications: Alendronate Sodium [Fosamax] 70 mg PO MO 12/07/17 [History] LORazepam [Ativan] 0.5 mg PO HS PRN 10/06/18 [History] Atorvastatin [Lipitor] 40 mg PO HS 10/15/18 [History] Isosorbide MONOnitrate [Isosorbide Mononitrate ER] 30 mg PO DAILY 10/15/18 [History] Ranitidine HCl [Heartburn Relief] 150 mg PO BID PRN 10/15/18 [History] Furosemide [Lasix] 80 mg PO DAILY 01/17/19 [History] GlipiZIDE [Glucotrol] 5 mg PO BID 01/17/19 [History] Polyethylene Glycol 3350 [MiraLax bowel prep] 17 gm PO DAILY 01/17/19 [History] Potassium Chloride 20 meq PO BID 01/17/19 [History] Sacubitril/Valsartan 97/103 MG [Entresto 97 mg-103 mg Tablet] 1 tab PO BID 01/17/19 [History] Tizanidine HCl 4 mg PO BID PRN 01/17/19 [History] Bupropion HCl [Wellbutrin Xl] 300 mg PO DAILY 06/06/19 [History] Cholecalciferol (D-3) [Vitamin D] 5,000 unit PO DAILY 06/06/19 [History] Sertraline [Zoloft] 150 mg PO DAILY 06/06/19 [History] Carvedilol [Coreg] 12.5 mg PO BIDWM #120 tablet 06/08/19 [Rx] Omeprazole [PriLOSEC] 40 mg PO BIDAC #60 capsule. 06/08/19 [Rx] Sucralfate [Carafate] 1 gm PO QIDAC #30 tablet 06/08/19 [Rx] Allergies/Adverse Reactions: Allergy/AdvReac Type Severity Reaction Status Date / Time Tetanus Vaccines and Toxoid Allergy See Verified 04/26/19 09:33 [Tetanus Vaccines & Toxoid] Comments diphenhydramine AdvReac See Verified 04/26/19 09:33 [From Benadryl] Comments morphine AdvReac Itching, Verified 04/26/19 09:33 HEART RACES Date of admission: 06/05/19 17:04 Primary care physician: Nidia Galloway Consults: 06/05/19 17:34 Consult to Surgery [CONS] Routine Consulting Provider: Acute Care Surgery Reason for Consult: EGD; GI bleed Time Notified: 17:45 Call Completed: Yes Discharging clinician: Chilo Vincent Anticipated date of discharge: 06/08/19 - Constitutional Vitals: Temp Pulse Resp BP Pulse Ox 98.1 F 64 18 154/86 94 06/08/19 07:17 06/08/19 07:17 06/08/19 07:17 06/08/19 07:17 06/08/19 07:17 General appearance: Present: cooperative, mild distress, A&O X 3, pleasant, answers questions appropriately Exam: General: Patient is alert, oriented 3. Head: Atraumatic, normal inspection, normocephalic. Eye: EOMI, PERRLA, ENT: Mucous membranes moist. Neck: Normal inspection. Respiratory: No respiratory distress, rhonchi, or wheezes noted. Cardiovascular: Regular rate and regular rhythm, GI: Soft, nondistended, normal bowel sounds. Extremities:No joint swelling, pedal edema, or tenderness noted. Neurological: Alert, oriented 3, no focal deficits. Psychiatric: normal affect, normal mood. Skin: Dry, intact, warm. Normal color. No rashes. - Patient Status Disposition: Home, Self-Care Condition: Good Functional capacity at discharge: independent ambulation Overall status at discharge: patient is progressing back to baseline - Discharge Instructions Follow Up With: Obey Bryson MD [Partnered Physician] - 06/29/19 8:00 am Nidia Galloway [Primary Care Provider] - 06/16/19 3:30 pm () Additional Instructions: Please fax discharge info to [phone] - Diet and Activity Activity: resume usual activities as tolerated Diet: advance to your usual diet (avoid caffeine and greasy foods), other
[2019-06-08] MEDS ORDERED: FLU Vac QV 19-20 (6Month+)/PF 0.5 ML SYRINGE IM ONE (10:51)
== END 2019-06-08 11:58 | disposition home or self-care (01) | DRG 241 ==
LOC: ICNU 17:04 → SUATTDRO 17:04 → 2NNU 06-06 08:47
PROVIDERS: ADMIT Pediatrics; ATTEND Family Medicine
PROC: ENDOEBX (2019-06-06 10:15)

== ENCOUNTER 2019-06-24 20:03 | Inpatient (IN) ==
[2019-06-24] MEDS ORDERED: Naloxone 0.4 MG/ML INJ IVP PRN (23:34)
[2019-06-25] MEDS ORDERED: *HR* Dextrose 50 % in Water (Syg) 50 ML SYRINGE IVP PRN (00:04)
[2019-06-25] MEDS ORDERED: Dextrose Gel 15 GM/37.5 ML TUBE PO PRN ×2 (00:04)
[2019-06-25] MEDS: 0.9 % Sodium Chloride 1,000 ML IVC SCH ×2 (01:12→20:25)
[2019-06-25] MEDS: Pantoprazole 40 MG in 0.9 % Sodium Chloride Mini Bag 100 ML IVC SCH ×5 (01:13→20:50)
[2019-06-25 01:26] LABS: Hematocrit 19.5 % (35.3-44.9)
[2019-06-25 01:28] LABS: Basophils % 0.5 %; Eosinophils # 0.2 K/mcL (0.0-0.6); Eosinophils % 3.1 %; Hematocrit 19.7 % (35.3-44.9); Hemoglobin 6.2 g/dL (11.5-15.4); Immature Granulocytes % 0.5 % (0-4); Lymphocytes # 1.6 K/mcL (0.6-4.6); Lymphocytes % 27.4 %; Mean Corpuscular HGB Conc 31.5 g/dL (31.6-35.5); Mean Platelet Volume 10.1 fL (9.4-12.4); Monocytes # 0.4 K/mcL (0.0-1.3); Monocytes % 6.1 %; Neutrophils # 3.6 K/mcL (1.6-8.9); Nucleated Red Blood Cells 0.3 /100 WBC (0); Platelet Count 283 K/mcL (140-400); Red Blood Count 2.14 M/mcL (3.82-4.97); Red Cell Distribution Width 16.6 % (11.5-14.5); Segmented Neutrophils % 62.4 %; White Blood Count 5.8 K/mcL (4.3-11.1)
[2019-06-25 01:29] LABS: Mean Corpuscular Volume 92.1 fL (83.0-100.0)
[2019-06-25 01:43] LABS: BUN/Creatinine Ratio 19 (6-26); Blood Urea Nitrogen 19 mg/dL (6-20); Calcium 8.8 mg/dL (8.6-10.3); Carbon Dioxide 24 mEq/L (23-29); Chloride 112 mEq/L (98-107); Glucose 88 mg/dL (70-105); Osmolality,Calculated 300 (280-300); Potassium 3.3 mEq/L (3.5-5.1); Sodium 144 mEq/L (136-145); eGFR For African Americans > 60 (> 60); eGFR For Non-African Americans 56 (> 60)
[2019-06-25] MEDS ORDERED: 0.9 % Sodium Chloride 250 ML ONE ×2 (02:20→06:14)
[2019-06-25] MEDS ORDERED: *HR* LORazepam 2 MG/ML VIAL IVP ONE (03:00)
[2019-06-25] MEDS: Insulin LISPRO 300 UNITS/3 ML VIAL SQ SCH ×3 (05:50→19:35)
[2019-06-25] MEDS ORDERED: Insulin LISPRO 300 UNITS/3 ML VIAL SQ SCH ×2 (08:00→21:00)
[2019-06-25] MEDS ORDERED: Lidocaine -MPF 2% 2 ML VIAL ONE (10:18)
[2019-06-25] MEDS ORDERED: *HR* Propofol 200 MG/20 ML VIAL IVP ONE (10:18)
[2019-06-25] MEDS ORDERED: Nitroglycerin 0.4 MG TAB.SUBL SL ONE (12:45)
[2019-06-25] MEDS ORDERED: *HR* Midazolam HCl 2 MG/2 ML VIAL ONE (12:52)
[2019-06-25] MEDS ORDERED: *HR* HYDROmorphone (PF) 1 MG/ML SYRINGE ONE (13:02)
[2019-06-25] MEDS ORDERED: Ondansetron 4 MG/2 ML VIAL ONE (14:44)
[2019-06-25 18:00] LABS: VBG Base Excess -3 mEq/L; VBG Chloride 114 mEq/L (98-107); VBG Glucose 77 mg/dl (65-95); VBG HCO3 22 mEq/L (21-27); VBG Ionized Calcium 1.26 mmol/L (1.15-1.35); VBG Oxygen Saturation 64 %; VBG PCO2 36 mmHg (41-51); VBG PH 7.39 pH Units (7.32-7.42); VBG PO2 33 mmHg (25-50); VBG Total CO2 23 mEq/L
[2019-06-25 19:05] LABS: Hematocrit 27.9 % (35.3-44.9); Hemoglobin 9.2 g/dL (11.5-15.4)
[2019-06-25] MEDS ORDERED: Acetaminophen 325 MG TABLET PO ONE (22:48)
[2019-06-26] MEDS: 0.9 % Sodium Chloride 1,000 ML IVC SCH ×2 (01:10→15:22)
[2019-06-26] MEDS: Insulin LISPRO 300 UNITS/3 ML VIAL SQ SCH ×4 (01:16→16:42)
[2019-06-26] MEDS: Pantoprazole 40 MG in 0.9 % Sodium Chloride Mini Bag 100 ML IVC SCH ×2 (01:19→06:35)
[2019-06-26 04:28] LABS: Hematocrit 26.9 % (35.3-44.9); Hemoglobin 8.6 g/dL (11.5-15.4)
[2019-06-26] MEDS: *HR* FentaNYL (PF) 100 MCG/2 ML VIAL IVP PRN ×3 (05:42→18:47)
[2019-06-26] MEDS: D5% in Water 1,000 ML IVC PRN (05:50)
[2019-06-26] MEDS: Pantoprazole 40 MG VIAL IVP SCH ×2 (08:07→16:46)
[2019-06-26] MEDS: Ondansetron 4 MG/2 ML VIAL IVP PRN ×2 (08:23→21:02)
[2019-06-26] MEDS: traMADol 50 MG TABLET PO PRN ×3 (09:54→23:59)
[2019-06-26] MEDS ORDERED: Acetaminophen IV 1,000 MG/100 ML INFUS..BTL IVPB ONE (10:10)
[2019-06-26] MEDS: Acetaminophen 325 MG TABLET PO PRN (16:46)
[2019-06-26 16:54] LABS: Basophils # 0.1 K/mcL (0.0-0.2); Basophils % 0.6 %; Eosinophils # 0.4 K/mcL (0.0-0.6); Eosinophils % 4.9 %; Hematocrit 29.5 % (35.3-44.9); Hemoglobin 9.4 g/dL (11.5-15.4); Immature Granulocytes % 0.4 % (0-4); Lymphocytes # 1.3 K/mcL (0.6-4.6); Lymphocytes % 16.2 %; Mean Corpuscular HGB Conc 31.9 g/dL (31.6-35.5); Mean Corpuscular Hemoglobin 29.4 pg (28.0-33.3); Mean Corpuscular Volume 92.2 fL (83.0-100.0); Mean Platelet Volume 9.8 fL (9.4-12.4); Monocytes # 0.4 K/mcL (0.0-1.3); Monocytes % 5.6 %; Neutrophils # 5.6 K/mcL (1.6-8.9); Nucleated Red Blood Cells 0.3 /100 WBC (0); Platelet Count 312 K/mcL (140-400); Red Cell Distribution Width 15.9 % (11.5-14.5); Segmented Neutrophils % 72.3 %; White Blood Count 7.8 K/mcL (4.3-11.1)
[2019-06-26 17:10] LABS: BUN/Creatinine Ratio 9 (6-26); Blood Urea Nitrogen 8 mg/dL (6-20); Carbon Dioxide 21 mEq/L (23-29); Chloride 109 mEq/L (98-107); Glucose 96 mg/dL (70-105); Osmolality,Calculated 282 (280-300); Potassium 3.9 mEq/L (3.5-5.1); Sodium 137 mEq/L (136-145); eGFR For African Americans > 60 (> 60); eGFR For Non-African Americans > 60 (> 60)
[2019-06-26] MEDS ORDERED: D5% in Water 1,000 ML IVC PRN (20:19)
[2019-06-26] MEDS ORDERED: Dextrose Gel 15 GM/37.5 ML TUBE PO PRN ×2 (20:19)
[2019-06-26] MEDS ORDERED: *HR* Dextrose 50 % in Water (Syg) 50 ML SYRINGE IVP PRN (20:19)
[2019-06-26] MEDS ORDERED: Insulin LISPRO 300 UNITS/3 ML VIAL SQ SCH (21:00)
[2019-06-26] MEDS: Acetaminophen/Butalbital/CaffeineTABLET PO PRN (21:11)
[2019-06-27] MEDS ORDERED: *HR* Promethazine 25 MG/ML VIAL IVP ONE (00:20)
[2019-06-27] MEDS: *HR* FentaNYL (PF) 100 MCG/2 ML VIAL IVP PRN ×4 (00:56→21:07)
[2019-06-27] MEDS ORDERED: Acetaminophen IV 1,000 MG/100 ML INFUS..BTL IVPB ONE (03:22)
[2019-06-27] MEDS: Ondansetron 4 MG/2 ML VIAL IVP PRN ×4 (03:22→21:07)
[2019-06-27] MEDS: Pantoprazole 40 MG VIAL IVP SCH ×2 (05:46→17:50)
[2019-06-27] MEDS: traMADol 50 MG TABLET PO PRN (05:51)
[2019-06-27 05:59] LABS: Basophils # 0.1 K/mcL (0.0-0.2); Basophils % 1.2 %; Eosinophils # 0.4 K/mcL (0.0-0.6); Eosinophils % 7.8 %; Hematocrit 27.1 % (35.3-44.9); Hemoglobin 8.7 g/dL (11.5-15.4); Immature Granulocytes % 1.7 % (0-4); Lymphocytes # 1.2 K/mcL (0.6-4.6); Lymphocytes % 22.7 %; Mean Corpuscular HGB Conc 32.1 g/dL (31.6-35.5); Mean Corpuscular Hemoglobin 29.4 pg (28.0-33.3); Mean Corpuscular Volume 91.6 fL (83.0-100.0); Mean Platelet Volume 10.5 fL (9.4-12.4); Monocytes # 0.3 K/mcL (0.0-1.3); Monocytes % 6.6 %; Neutrophils # 3.1 K/mcL (1.6-8.9); Nucleated Red Blood Cells 0.6 /100 WBC (0); Platelet Count 241 K/mcL (140-400); Red Blood Count 2.96 M/mcL (3.82-4.97); Red Cell Distribution Width 15.8 % (11.5-14.5); White Blood Count 5.2 K/mcL (4.3-11.1)
[2019-06-27 06:10] LABS: BUN/Creatinine Ratio 10 (6-26); Blood Urea Nitrogen 9 mg/dL (6-20); Calcium 8.4 mg/dL (8.6-10.3); Carbon Dioxide 19 mEq/L (23-29); Chloride 114 mEq/L (98-107); Glucose 71 mg/dL (70-105); Magnesium 1.8 mg/dL (1.6-2.6); Osmolality,Calculated 287 (280-300); Potassium 4.3 mEq/L (3.5-5.1); Sodium 140 mEq/L (136-145); eGFR For African Americans > 60 (> 60); eGFR For Non-African Americans > 60 (> 60)
[2019-06-27] MEDS ORDERED: Insulin LISPRO 300 UNITS/3 ML VIAL SQ SCH (07:30)
[2019-06-27 11:17] LABS: Hematocrit 26.5 % (35.3-44.9); Hemoglobin 8.6 g/dL (11.5-15.4)
[2019-06-27] MEDS: Acetaminophen/Butalbital/CaffeineTABLET PO PRN (11:26)
[2019-06-27] MEDS: D5% in Water 1,000 ML IVC PRN ×2 (11:36→22:02)
[2019-06-27] MEDS: *HR* LORazepam 0.5 MG TABLET PO PRN (16:23)
[2019-06-27 17:28] LABS: Basophils % 0.8 %; Eosinophils # 0.4 K/mcL (0.0-0.6); Eosinophils % 7.9 %; Immature Granulocytes % 0.4 % (0-4); Immature Reticulocyte % 21.3 % (11.0-38.0); Lymphocytes # 1.2 K/mcL (0.6-4.6); Lymphocytes % 23.8 %; Mean Corpuscular Hemoglobin 29.5 pg (28.0-33.3); Mean Corpuscular Volume 95.1 fL (83.0-100.0); Mean Platelet Volume 9.7 fL (9.4-12.4); Monocytes # 0.3 K/mcL (0.0-1.3); Monocytes % 6.4 %; Platelet Count 272 K/mcL (140-400); Red Blood Count 3.05 M/mcL (3.82-4.97); Red Cell Distribution Width 15.5 % (11.5-14.5); Retculocyte # 0.14 M/mcL (0.05-0.10); Reticulocyte % 4.6 % (1.6-2.8); Segmented Neutrophils % 60.7 %; White Blood Count 5.2 K/mcL (4.3-11.1)
[2019-06-27 17:48] LABS: Neutrophils # 3.2 K/mcL (1.6-8.9)
[2019-06-27 18:10] LABS: Ferritin 19 ng/mL (10-120); Iron < 10 mcg/dL (50-170); Lactate Dehydrogenase 155 Units/L (140-271); Transferrin 306 mg/dL (203-362)
[2019-06-27 18:12] LABS: Folate 5.5 ng/mL (3.0-16.0)
[2019-06-27 18:56] LABS: Anisocytosis 1+ (Not Present); Hypochromasia Present (Not Present); Platelet Estimate Normal (Normal)
[2019-06-27] MEDS: Sacubitril/Valsartan 97/103 MG 1 TAB TABLET PO SCH (19:57)
[2019-06-27] MEDS: Acetaminophen 325 MG TABLET PO PRN (23:34)
[2019-06-28] MEDS: *HR* LORazepam 0.5 MG TABLET PO PRN ×2 (01:15→11:03)
[2019-06-28] MEDS: traMADol 50 MG TABLET PO PRN ×3 (01:15→14:31)
[2019-06-28] MEDS: *HR* FentaNYL (PF) 100 MCG/2 ML VIAL IVP PRN (03:15)
[2019-06-28] MEDS: Ondansetron 4 MG/2 ML VIAL IVP PRN ×4 (03:15→22:01)
[2019-06-28] MEDS: Pantoprazole 40 MG VIAL IVP SCH (05:23)
[2019-06-28 07:01] LABS: Basophils % 0.7 %; Eosinophils # 0.3 K/mcL (0.0-0.6); Hematocrit 28.7 % (35.3-44.9); Hemoglobin 8.9 g/dL (11.5-15.4); Immature Granulocytes % 0.7 % (0-4); Lymphocytes # 1.1 K/mcL (0.6-4.6); Lymphocytes % 25.1 %; Mean Corpuscular Hemoglobin 29.6 pg (28.0-33.3); Mean Corpuscular Volume 95.3 fL (83.0-100.0); Monocytes # 0.3 K/mcL (0.0-1.3); Monocytes % 7.6 %; Neutrophils # 2.7 K/mcL (1.6-8.9); Platelet Count 284 K/mcL (140-400); Red Blood Count 3.01 M/mcL (3.82-4.97); Red Cell Distribution Width 15.8 % (11.5-14.5); Segmented Neutrophils % 59.9 %; White Blood Count 4.5 K/mcL (4.3-11.1)
[2019-06-28 08:10] LABS: BUN/Creatinine Ratio 7 (6-26); Blood Urea Nitrogen 7 mg/dL (6-20); Calcium 8.6 mg/dL (8.6-10.3); Carbon Dioxide 22 mEq/L (23-29); Chloride 110 mEq/L (98-107); Glucose 91 mg/dL (70-105); Magnesium 1.7 mg/dL (1.6-2.6); Osmolality,Calculated 290 (280-300); Phosphorous 3.3 mg/dL (2.7-4.5); Potassium 3.5 mEq/L (3.5-5.1); Sodium 141 mEq/L (136-145); eGFR For African Americans > 60 (> 60); eGFR For Non-African Americans 56 (> 60)
[2019-06-28] MEDS: Sacubitril/Valsartan 97/103 MG 1 TAB TABLET PO SCH ×2 (08:28→21:53)
[2019-06-28] MEDS ORDERED: Milk and Molasses Enema 200 ML RC ONE (09:18)
[2019-06-28] MEDS ORDERED: Cyanocobalamin (B-12) 1,000 MCG/ML VIAL SQ ONE (09:18)
[2019-06-28] MEDS ORDERED: Iron Sucrose Complex 250 MG in 0.9 % Sodium Chloride 250 ML IVPB SCH (09:30)
[2019-06-28] MEDS ORDERED: tiZANidine 4 MG TABLET PO PRN (13:59)
[2019-06-28] MEDS ORDERED: *HR* LORazepam 0.5 MG TABLET PO PRN (13:59)
[2019-06-28] MEDS: Acetaminophen 325 MG TABLET PO PRN (17:31)
[2019-06-28] MEDS: Sucralfate 1 GM TABLET PO SCH ×2 (17:31→21:53)
[2019-06-28] MEDS ORDERED: MOM Conc 10 ML UD.LIQ PO SCH (21:00)
[2019-06-28] MEDS: Famotidine 20 MG TABLET PO SCH (21:53)
[2019-06-29 01:47] LABS: Eosinophils # 0.5 K/mcL (0.0-0.6); Eosinophils % 11.7 %; Hematocrit 30.7 % (35.3-44.9); Immature Granulocytes % 0.7 % (0-4); Lymphocytes # 1.2 K/mcL (0.6-4.6); Lymphocytes % 28.5 %; Mean Corpuscular HGB Conc 32.6 g/dL (31.6-35.5); Mean Corpuscular Hemoglobin 29.2 pg (28.0-33.3); Mean Corpuscular Volume 89.5 fL (83.0-100.0); Mean Platelet Volume 9.7 fL (9.4-12.4); Monocytes # 0.4 K/mcL (0.0-1.3); Monocytes % 9.2 %; Platelet Count 306 K/mcL (140-400); Red Blood Count 3.43 M/mcL (3.82-4.97); Red Cell Distribution Width 15.9 % (11.5-14.5); Segmented Neutrophils % 48.9 %
[2019-06-29] MEDS: Ondansetron 4 MG/2 ML VIAL IVP PRN (04:42)
[2019-06-29 07:14] VITALS: BP 149/71
[2019-06-29] MEDS ORDERED: Furosemide 40 MG TABLET PO SCH (09:00)
[2019-06-29] MEDS ORDERED: Cholecalciferol (D-3) 1,000 UNIT (25MCG) TABLET PO SCH (09:00)
[2019-06-29] MEDS ORDERED: Isosorbide MONOnitrate (24 HR) 30 MG TAB.ER.24H PO SCH (09:00)
[2019-06-29] MEDS ORDERED: BuPROPion XL (24 HR) 150 MG TABLET PO SCH (09:00)
[2019-06-29] MEDS ORDERED: Cyanocobalamin (B-12) 1,000 MCG/ML VIAL IM SCH (09:00)
[2019-06-29] MEDS ORDERED: Folic Acid 1 MG TABLET PO SCH (09:00)
[2019-06-29] MEDS: Famotidine 20 MG TABLET PO SCH (09:05)
[2019-06-29] MEDS: Sacubitril/Valsartan 97/103 MG 1 TAB TABLET PO SCH (09:05)
[2019-06-29] MEDS: Sucralfate 1 GM TABLET PO SCH (09:05)
[2019-06-30 11:26] LABS: Kappa Qnt Free Light Chains 2.3 mg/dL (0.33-1.94); Lambda Qnt Free Light Chains 1.13 mg/dL (0.57-2.63)
[2019-07-01 12:41] LABS: Alpha 2 Globulin (PEP) 0.64 g/dL (0.48-1.05); Beta Globulin (PEP) 0.74 g/dL (0.48-1.10)
[2019-07-01 12:50] LABS: IFE Reflexed IFE Done; Immunoglobulin A 142 mg/dL (68-408); Immunoglobulin G 488 mg/dL (768-1632); Immunoglobulin M 24 mg/dL (35-263)
== END 2019-06-29 11:06 | disposition home health service (06) | DRG 241 ==
LOC: 3ANU → SUATTDRO 06-27 13:40
PROVIDERS: ADMIT Internal Medicine; ATTEND Internal Medicine

== ENCOUNTER 2020-02-07 05:59 | Inpatient (IN) ==
[2020-02-07] MEDS ORDERED: 0.9 % Sodium Chloride 1,000 ML ONE ×2 (07:11→10:24)
[2020-02-07] MEDS ORDERED: *HR* Heparin 10,000 UNIT/10 ML VIAL ONE (07:11)
[2020-02-07] MEDS ORDERED: ISOVUE-370 200 ML INFUS..BTL ONE (07:11)
[2020-02-07] MEDS ORDERED: Heparin 1,000 UNITS/500 mL 2,000 ML ONE (07:11)
[2020-02-07] MEDS ORDERED: Ondansetron 4 MG/2 ML VIAL IVP ONE ×2 (07:29→09:34)
[2020-02-07] MEDS: 0.9 % Sodium Chloride 1,000 ML IVC SCH (07:39)
[2020-02-07] MEDS ORDERED: *HR* FentaNYL (PF) 100 MCG/2 ML VIAL ONE ×3 (07:57→11:34)
[2020-02-07] MEDS ORDERED: Protamine Sulfate 50 MG/5 ML VIAL IVP ONE ×2 (09:26→10:48)
[2020-02-07] MEDS ORDERED: *HR* Phenylephrine 10 MG/ML VIAL IVC ONE (09:34)
[2020-02-07] MEDS ORDERED: *HR* Propofol 200 MG/20 ML VIAL IVP ONE (09:34)
[2020-02-07] MEDS ORDERED: *HR* Metoprolol 5 MG/5 ML VIAL IVP ONE (09:34)
[2020-02-07] MEDS ORDERED: Lidocaine -MPF 4% 5 ML AMPUL INFILT ONE (09:34)
[2020-02-07] MEDS ORDERED: Lidocaine 2% Syringe 100 MG/5 ML IV ONE (09:34)
[2020-02-07] MEDS ORDERED: *HR* Labetalol 20 MG/4 ML SYRINGE IVP ONE (09:34)
[2020-02-07] MEDS ORDERED: *HR* Rocuronium Bromide 50 MG/5 ML VIAL IVC ONE (09:34)
[2020-02-07] MEDS ORDERED: Dexamethasone 4 MG/ML VIAL IVP ONE (09:34)
[2020-02-07] MEDS ORDERED: tiZANidine 4 MG TABLET PO PRN (12:11)
[2020-02-07] MEDS: Ringers Solution, Lactated 1,000 ML IVC SCH (14:13)
[2020-02-07] MEDS: Sucralfate 1 GM TABLET PO SCH ×2 (16:58→20:49)
[2020-02-07] MEDS: carvediloL 6.25 MG TABLET PO SCH (16:58)
[2020-02-07] MEDS: Apixaban 5 MG TABLET PO SCH (16:58)
[2020-02-07] MEDS ORDERED: Apixaban 5 MG TABLET PO SCH (18:00)
[2020-02-07] MEDS: Famotidine 20 MG TABLET PO SCH (20:50)
[2020-02-07] MEDS: Sacubitril/Valsartan 97/103 MG 1 TAB TABLET PO SCH (20:50)
[2020-02-07] MEDS: polyethylene glycoL 3350 17 GM POWD.PACK PO SCH (20:51)
[2020-02-07] MEDS ORDERED: MOM Conc 10 ML UD.LIQ PO SCH (21:00)
[2020-02-07] MEDS ORDERED: *HR* Dextrose 50 % in Water (Syg) 50 ML SYRINGE IVP PRN (21:10)
[2020-02-07] MEDS ORDERED: Dextrose Gel 15 GM/37.5 ML TUBE PO PRN ×2 (21:10)
[2020-02-07] MEDS ORDERED: D5% in Water 1,000 ML IVC PRN (21:10)
[2020-02-08] MEDS: Menthol 9.1 MG LOZENGE PO PRN ×2 (02:33→05:45)
[2020-02-08 03:57] LABS: Basophils % 0.4 %; Eosinophils # 0.2 K/mcL (0.0-0.6); Eosinophils % 1.6 %; Hematocrit 32.6 % (35.3-44.9); Immature Granulocytes % 0.3 % (0-4); Lymphocytes # 0.7 K/mcL (0.6-4.6); Lymphocytes % 7.6 %; Mean Corpuscular HGB Conc 32.5 g/dL (31.6-35.5); Mean Corpuscular Hemoglobin 32.6 pg (28.0-33.3); Mean Corpuscular Volume 100.3 fL (83.0-100.0); Mean Platelet Volume 10.3 fL (9.4-12.4); Monocytes # 0.6 K/mcL (0.0-1.3); Monocytes % 6.3 %; Neutrophils # 8.1 K/mcL (1.6-8.9); Platelet Count 218 K/mcL (140-400); Red Blood Count 3.25 M/mcL (3.82-4.97); Red Cell Distribution Width 12.5 % (11.5-14.5); Segmented Neutrophils % 83.8 %; White Blood Count 9.6 K/mcL (4.3-11.1)
[2020-02-08 03:59] LABS: Hemoglobin 10.6 g/dL (11.5-15.4)
[2020-02-08 04:02] LABS: INR 1.3; Prothrombin Time 14.3 Seconds (9.4-12.1)
[2020-02-08] MEDS: 0.9 % Sodium Chloride 1,000 ML IVC SCH (04:18)
[2020-02-08 04:21] LABS: BUN/Creatinine Ratio 15 (6-26); Blood Urea Nitrogen 15 mg/dL (6-20); Calcium 9.1 mg/dL (8.6-10.3); Carbon Dioxide 25 mEq/L (23-29); Chloride 108 mEq/L (98-107); Glucose 72 mg/dL (70-105); Osmolality,Calculated 287 (280-300); Potassium 4.5 mEq/L (3.5-5.1); Sodium 139 mEq/L (136-145); eGFR For African Americans > 60 (> 60); eGFR For Non-African Americans 59 (> 60)
[2020-02-08] MEDS: Apixaban 5 MG TABLET PO SCH (05:44)
[2020-02-08] MEDS: Ringers Solution, Lactated 1,000 ML IVC SCH (08:20)
[2020-02-08] MEDS: Sacubitril/Valsartan 97/103 MG 1 TAB TABLET PO SCH ×2 (08:41→21:08)
[2020-02-08] MEDS: Famotidine 20 MG TABLET PO SCH ×2 (08:55→20:34)
[2020-02-08] MEDS: Sucralfate 1 GM TABLET PO SCH ×3 (08:57→20:34)
[2020-02-08] MEDS: polyethylene glycoL 3350 17 GM POWD.PACK PO SCH ×2 (08:58→20:34)
[2020-02-08] MEDS ORDERED: DilTIAZem CD (24hr) 120 MG CAP.ER.24H PO SCH (09:00)
[2020-02-08] MEDS ORDERED: Aspirin Enteric Coated 81 MG Tablet PO SCH (09:00)
[2020-02-08] MEDS ORDERED: *HR* LORazepam 0.5 MG TABLET PO SCH (09:00)
[2020-02-08] MEDS ORDERED: Folic Acid 1 MG TABLET PO SCH (09:00)
[2020-02-08] MEDS ORDERED: DilTIAZem CD (24hr) 180 MG CAP.ER.24H PO SCH (09:00)
[2020-02-08] MEDS ORDERED: Psyllium 1 PACKET POWD.PACK PO SCH (09:00)
[2020-02-08] MEDS ORDERED: Cholecalciferol (D-3) 1,000 UNIT (25MCG) TABLET PO SCH (09:00)
[2020-02-08] MEDS ORDERED: Cyanocobalamin (B-12) 1,000 MCG TABLET PO SCH (09:00)
[2020-02-08] MEDS ORDERED: Furosemide 40 MG TABLET PO SCH (09:00)
[2020-02-08] MEDS ORDERED: BuPROPion XL (24 HR) 150 MG TABLET PO SCH (09:00)
[2020-02-08] MEDS ORDERED: Isosorbide MONOnitrate (24 HR) 30 MG TAB.ER.24H PO SCH (09:00)
[2020-02-08] MEDS ORDERED: 0.9 % Sodium Chloride 500 ML IV ONE (09:12)
[2020-02-08] MEDS ORDERED: D5% in Water 250 ML IVC SCH (09:15)
[2020-02-08] MEDS ORDERED: D5% in Water 250 ML ONE (09:18)
[2020-02-08] MEDS: carvediloL 6.25 MG TABLET PO SCH (09:28)
[2020-02-08] MEDS ORDERED: carvediloL 6.25 MG TABLET PO SCH (17:00)
[2020-02-08] MEDS ORDERED: Menthol 9.1 MG LOZENGE PO PRN (18:18)
[2020-02-08] MEDS ORDERED: 0.9 % Sodium Chloride 1,000 ML IVC SCH (18:18)
[2020-02-08] MEDS ORDERED: D5% in Water 1,000 ML IVC PRN (18:18)
[2020-02-08] MEDS ORDERED: Dextrose Gel 15 GM/37.5 ML TUBE PO PRN ×2 (18:18)
[2020-02-08] MEDS: D5% in Water 250 ML IVC SCH (19:38)
[2020-02-08] MEDS: MOM Conc 10 ML UD.LIQ PO SCH (20:33)
[2020-02-08] MEDS: tiZANidine 4 MG TABLET PO PRN (20:34)
[2020-02-09 02:23] LABS: Basophils % 0.3 %; Eosinophils # 0.6 K/mcL (0.0-0.6); Eosinophils % 8.8 %; Hematocrit 35.8 % (35.3-44.9); Hemoglobin 11.5 g/dL (11.5-15.4); Immature Granulocytes % 0.5 % (0-4); Lymphocytes # 0.8 K/mcL (0.6-4.6); Lymphocytes % 11.4 %; Mean Corpuscular HGB Conc 32.1 g/dL (31.6-35.5); Mean Corpuscular Hemoglobin 31.5 pg (28.0-33.3); Mean Corpuscular Volume 98.1 fL (83.0-100.0); Mean Platelet Volume 10.2 fL (9.4-12.4); Monocytes # 0.5 K/mcL (0.0-1.3); Neutrophils # 4.7 K/mcL (1.6-8.9); Platelet Count 216 K/mcL (140-400); Red Blood Count 3.65 M/mcL (3.82-4.97); Red Cell Distribution Width 12.6 % (11.5-14.5); White Blood Count 6.6 K/mcL (4.3-11.1)
[2020-02-09 02:39] LABS: BUN/Creatinine Ratio 13 (6-26); Blood Urea Nitrogen 11 mg/dL (6-20); Calcium 9.2 mg/dL (8.6-10.3); Carbon Dioxide 21 mEq/L (23-29); Chloride 112 mEq/L (98-107); Glucose 53 mg/dL (70-105); Osmolality,Calculated 285 (280-300); Potassium 4.7 mEq/L (3.5-5.1); Sodium 139 mEq/L (136-145); eGFR For African Americans > 60 (> 60); eGFR For Non-African Americans > 60 (> 60)
[2020-02-09] MEDS: D5% in Water 250 ML IVC SCH ×4 (03:09→07:58)
[2020-02-09] MEDS: *HR* Dextrose 50 % in Water (Syg) 50 ML SYRINGE IVP PRN ×4 (03:21→13:04)
[2020-02-09] MEDS: polyethylene glycoL 3350 17 GM POWD.PACK PO SCH ×2 (07:58→19:39)
[2020-02-09] MEDS: Sucralfate 1 GM TABLET PO SCH ×4 (07:59→19:39)
[2020-02-09] MEDS: Cholecalciferol (D-3) 1,000 UNIT (25MCG) TABLET PO SCH (07:59)
[2020-02-09] MEDS: Aspirin Enteric Coated 81 MG Tablet PO SCH (07:59)
[2020-02-09] MEDS: *HR* LORazepam 0.5 MG TABLET PO SCH (07:59)
[2020-02-09] MEDS: Cyanocobalamin (B-12) 1,000 MCG TABLET PO SCH (07:59)
[2020-02-09] MEDS: Psyllium 1 PACKET POWD.PACK PO SCH (07:59)
[2020-02-09] MEDS: BuPROPion XL (24 HR) 150 MG TABLET PO SCH (08:00)
[2020-02-09] MEDS: Isosorbide MONOnitrate (24 HR) 30 MG TAB.ER.24H PO SCH (08:00)
[2020-02-09] MEDS: DilTIAZem CD (24hr) 180 MG CAP.ER.24H PO SCH (08:00)
[2020-02-09] MEDS: carvediloL 6.25 MG TABLET PO SCH ×2 (08:01→15:56)
[2020-02-09] MEDS: Furosemide 40 MG TABLET PO SCH (08:01)
[2020-02-09] MEDS: Famotidine 20 MG TABLET PO SCH ×2 (08:01→19:39)
[2020-02-09] MEDS: Apixaban 5 MG TABLET PO SCH ×2 (08:02→19:39)
[2020-02-09] MEDS: Folic Acid 1 MG TABLET PO SCH (08:02)
[2020-02-09] MEDS: tiZANidine 4 MG TABLET PO PRN ×2 (08:09→20:55)
[2020-02-09] MEDS: Sacubitril/Valsartan 97/103 MG 1 TAB TABLET PO SCH (08:59)
[2020-02-09] MEDS: MOM Conc 10 ML UD.LIQ PO SCH (19:39)
[2020-02-09] MEDS ORDERED: Acetaminophen 325 MG TABLET PO PRN (20:00)
[2020-02-10] MEDS: Dextrose Gel 15 GM/37.5 ML TUBE PO PRN ×2 (02:50→11:08)
[2020-02-10] MEDS ORDERED: Ondansetron 4 MG/2 ML VIAL IVP PRN (08:12)
[2020-02-10] MEDS ORDERED: Isovue-370 500 ML BOTTLE IVP ONE (09:13)
[2020-02-10] MEDS: Folic Acid 1 MG TABLET PO SCH (09:48)
[2020-02-10] MEDS: Cholecalciferol (D-3) 1,000 UNIT (25MCG) TABLET PO SCH (09:48)
[2020-02-10] MEDS: polyethylene glycoL 3350 17 GM POWD.PACK PO SCH (09:48)
[2020-02-10] MEDS: *HR* LORazepam 0.5 MG TABLET PO SCH (09:48)
[2020-02-10] MEDS: Psyllium 1 PACKET POWD.PACK PO SCH (09:48)
[2020-02-10] MEDS: BuPROPion XL (24 HR) 150 MG TABLET PO SCH (09:48)
[2020-02-10] MEDS: Famotidine 20 MG TABLET PO SCH (09:49)
[2020-02-10] MEDS: Aspirin Enteric Coated 81 MG Tablet PO SCH (09:49)
[2020-02-10] MEDS: Cyanocobalamin (B-12) 1,000 MCG TABLET PO SCH (09:50)
[2020-02-10] MEDS: carvediloL 6.25 MG TABLET PO SCH (09:50)
[2020-02-10] MEDS: Sucralfate 1 GM TABLET PO SCH ×2 (09:50→12:52)
[2020-02-10] MEDS: Isosorbide MONOnitrate (24 HR) 30 MG TAB.ER.24H PO SCH (09:50)
[2020-02-10] MEDS: Furosemide 40 MG TABLET PO SCH (09:50)
[2020-02-10] MEDS: Apixaban 5 MG TABLET PO SCH (09:50)
[2020-02-10] MEDS: DilTIAZem CD (24hr) 180 MG CAP.ER.24H PO SCH (09:51)
[2020-02-10] MEDS ORDERED: Dextrose Gel 15 GM/37.5 ML TUBE PO PRN (11:10)
[2020-02-10 11:44] VITALS: BP 119/70
== END 2020-02-10 15:28 | disposition home or self-care (01) | DRG 274 ==
LOC: ICNU 05:59 → 2NNU 02-08 18:08
PROVIDERS: ADMIT Internal Medicine Cardiovascular Disease; ATTEND Internal Medicine Cardiovascular Disease

== ENCOUNTER 2020-03-20 11:11 | Observation (INO) ==
[2020-03-20] MEDS ORDERED: Aspirin 81 MG TAB.CHEW PO ONE (11:28)
[2020-03-20] MEDS ORDERED: Pantoprazole 40 MG VIAL IVP ONE (11:28)
[2020-03-20] MEDS: Nitroglycerin 0.4 MG TAB.SUBL SL PRN ×2 (12:20→13:08)
[2020-03-20 12:21] LABS: Basophils # 0.1 K/mcL (0.0-0.2); Basophils % 0.9 %; Eosinophils # 0.3 K/mcL (0.0-0.6); Hematocrit 43.1 % (35.3-44.9); Hemoglobin 14.2 g/dL (11.5-15.4); Immature Granulocytes % 0.3 % (0-4); Lymphocytes # 1.6 K/mcL (0.6-4.6); Lymphocytes % 20.9 %; Mean Corpuscular HGB Conc 32.9 g/dL (31.6-35.5); Mean Corpuscular Hemoglobin 30.9 pg (28.0-33.3); Mean Corpuscular Volume 93.9 fL (83.0-100.0); Mean Platelet Volume 9.9 fL (9.4-12.4); Monocytes # 0.5 K/mcL (0.0-1.3); Neutrophils # 5.3 K/mcL (1.6-8.9); Platelet Count 303 K/mcL (140-400); Red Blood Count 4.59 M/mcL (3.82-4.97); Segmented Neutrophils % 67.9 %; White Blood Count 7.8 K/mcL (4.3-11.1)
[2020-03-20] MEDS ORDERED: Perflutren Lipid Microsphere 1.3 ML in 0.9 % Sodium Chloride 8.7 ML IVP PRN (13:16)
[2020-03-20 13:22] LABS: Prothrombin Time 11.6 Seconds (9.4-12.1)
[2020-03-20 13:25] LABS: Activated Partial Thrombo Time 35.5 Seconds (26.0-36.0)
[2020-03-20 13:30] LABS: BUN/Creatinine Ratio 15 (6-26); Blood Urea Nitrogen 18 mg/dL (6-20); Calcium 10.6 mg/dL (8.6-10.3); Carbon Dioxide 30 mEq/L (23-29); Chloride 100 mEq/L (98-107); Glucose 105 mg/dL (70-105); Osmolality,Calculated 292 (280-300); Potassium 3.9 mEq/L (3.5-5.1); Sodium 140 mEq/L (136-145); Troponin I < 0.03 ng/mL (< 0.04); eGFR For African Americans 56 (> 60); eGFR For Non-African Americans 46 (> 60)
[2020-03-20] MEDS ORDERED: Naloxone 0.4 MG/ML INJ IVP PRN (14:05)
[2020-03-20] MEDS ORDERED: *HR* LORazepam 0.5 MG TABLET PO PRN (14:07)
[2020-03-20] MEDS ORDERED: NON-FORMULARY MEDICATION 1 EACH EACH (Alendronate Sodium [Fosamax] 70 MG) PO SCH (14:15)
[2020-03-20 14:41] LABS: Chol/HDL Ratio 4.9 (0-4.9); Cholesterol 221 mg/dL (< 200); HDL Cholesterol 45 mg/dL (40-59); LDL Cholesterol,Calculated 137 mg/dL (< 100); Triglycerides 193 mg/dL (< 150)
[2020-03-20 15:14] LABS: Estimated Average Glucose 120 mg/dl; Hemoglobin A1C 5.8 %
[2020-03-20] MEDS: Apixaban 5 MG TABLET PO SCH (20:11)
[2020-03-20] MEDS: Famotidine 20 MG TABLET PO SCH (20:11)
[2020-03-20] MEDS: Ondansetron 4 MG/2 ML VIAL IVP PRN (20:20)
[2020-03-20] MEDS ORDERED: *HR* HYDROcodone/Acet 5/325 mg TABLET PO ONE (20:43)
[2020-03-20] MEDS ORDERED: Metoprolol XL (24 HR) Succ 50 MG TAB.ER.24H PO ONE (21:00)
[2020-03-20] MEDS ORDERED: Metoprolol XL (24 HR) Succ 50 MG TAB.ER.24H PO SCH (21:00)
[2020-03-21] MEDS: Nitroglycerin 0.4 MG TAB.SUBL SL PRN ×2 (00:48→08:47)
[2020-03-21 01:05] LABS: Calcium 9.7 mg/dL (8.6-10.3); Magnesium 2.3 mg/dL (1.6-2.6); Phosphorous 5.5 mg/dL (2.7-4.5); Potassium 3.2 mEq/L (3.5-5.1)
[2020-03-21] MEDS ORDERED: *HR* HYDROmorphone (PF) 1 MG/ML SYRINGE IVP ONE ×2 (02:03→03:12)
[2020-03-21] MEDS ORDERED: Potassium Chloride 20 MEQ, Lidocaine 1% 2 ML in 0.9 % Sodium Chloride 250 ML IVPB ONE (03:30)
[2020-03-21] MEDS: Ondansetron 4 MG/2 ML VIAL IVP PRN ×2 (03:39→09:14)
[2020-03-21] MEDS ORDERED: Isovue-370 500 ML BOTTLE IVP ONE (07:58)
[2020-03-21] MEDS ORDERED: 0.9 % Sodium Chloride 1,000 ML ONE (08:21)
[2020-03-21] MEDS ORDERED: Isosorbide MONOnitrate (24 HR) 30 MG TAB.ER.24H PO SCH (09:00)
[2020-03-21] MEDS ORDERED: Sucralfate 1 GM TABLET PO SCH (09:00)
[2020-03-21] MEDS ORDERED: Furosemide 40 MG TABLET PO SCH (09:00)
[2020-03-21] MEDS ORDERED: Folic Acid 1 MG TABLET PO SCH (09:00)
[2020-03-21] MEDS ORDERED: polyethylene glycoL 3350 17 GM POWD.PACK PO SCH (09:00)
[2020-03-21] MEDS ORDERED: Cholecalciferol (D-3) 1,000 UNIT (25MCG) TABLET PO SCH (09:00)
[2020-03-21] MEDS ORDERED: DilTIAZem CD (24hr) 180 MG CAP.ER.24H PO SCH (09:00)
[2020-03-21] MEDS ORDERED: 0.9 % Sodium Chloride 1,000 ML IVC SCH (09:15)
[2020-03-21] MEDS: Apixaban 5 MG TABLET PO SCH (09:59)
[2020-03-21] MEDS: Famotidine 20 MG TABLET PO SCH (10:10)
[2020-03-21] MEDS ORDERED: Aspirin Enteric Coated 325 MG Tablet PO SCH (11:55)
[2020-03-21] MEDS ORDERED: Ranolazine 500 MG TAB.ER.12H PO SCH (12:00)
[2020-03-21] MEDS ORDERED: Metoprolol XL (24 HR) Succ 25 MG TAB.ER.24H PO SCH (12:00)
[2020-03-21 12:25] VITALS: BP 109/66
[2020-03-22] MEDS ORDERED: Furosemide 20 MG TABLET PO SCH (09:00)
== END 2020-03-21 14:15 | disposition home or self-care (01) ==
LOC: SUATTDRO → 3BNU 11:11 → EMEROOARM 11:11 → SUATTDRO 14:05 → 3BNU 14:50
PROVIDERS: ADMIT Internal Medicine; ATTEND Internal Medicine

== ENCOUNTER 2020-05-14 12:04 | Inpatient (IN) ==
[2020-05-14] MEDS ORDERED: Naloxone 0.4 MG/ML INJ IVP PRN (14:37)
[2020-05-14] MEDS ORDERED: Nitroglycerin 0.4 MG TAB.SUBL SL PRN (14:42)
[2020-05-14] MEDS ORDERED: Morphine Sulfate 2 MG/ML SYRINGE IVP ONE ×4 (15:22→22:27)
[2020-05-14 15:26] LABS: Hematocrit 41.1 % (35.3-44.9); Mean Corpuscular HGB Conc 31.6 g/dL (31.6-35.5); Mean Corpuscular Hemoglobin 29.9 pg (28.0-33.3); Mean Corpuscular Volume 94.5 fL (83.0-100.0); Mean Platelet Volume 9.8 fL (9.4-12.4); Platelet Count 276 K/mcL (140-400); Red Blood Count 4.35 M/mcL (3.82-4.97); Red Cell Distribution Width 13.5 % (11.5-14.5); White Blood Count 8.5 K/mcL (4.3-11.1)
[2020-05-14 15:44] LABS: INR 0.9; Prothrombin Time 10.7 Seconds (9.4-12.1)
[2020-05-14] MEDS ORDERED: Morphine Sulfate 2 MG/ML SYRINGE IVP PRN (15:44)
[2020-05-14 15:55] LABS: Chol/HDL Ratio 4.4 (0-4.9); Cholesterol 220 mg/dL (< 200); HDL Cholesterol 50 mg/dL (40-59); LDL Cholesterol,Calculated 144 mg/dL (< 100); Magnesium 2.1 mg/dL (1.6-2.6); Phosphorous 3.5 mg/dL (2.7-4.5); Triglycerides 132 mg/dL (< 150); Troponin I < 0.03 ng/mL (< 0.04)
[2020-05-14 15:58] LABS: Alanine Aminotransferase 15 Units/L (7-52); Albumin 4.6 g/dL (3.5-5.7); Albumin/Globulin Ratio 1.6 (1.1-2.2); Alkaline Phosphatase 78 Units/L (34-104); Aspartate Amino Transferase 18 Units/L (13-39); BUN/Creatinine Ratio 11 (6-26); Bilirubin,Direct 0.1 mg/dL (0.0-0.2); Bilirubin,Indirect 0.7 mg/dL (0.0-1.0); Bilirubin,Total 0.8 mg/dL (0.3-1.0); Blood Urea Nitrogen 11 mg/dL (6-20); Calcium 9.6 mg/dL (8.6-10.3); Carbon Dioxide 24 mEq/L (23-29); Chloride 108 mEq/L (98-107); Globulin 2.8 g/dL (2.4-3.5); Glucose 90 mg/dL (70-105); Osmolality,Calculated 293 (280-300); Potassium 3.6 mEq/L (3.5-5.1); Sodium 142 mEq/L (136-145); Thyroid Stimulating Hormone 1.136 mcIU/mL (0.340-5.600); Total Protein 7.4 g/dL (6.4-8.9); eGFR For African Americans > 60 (> 60); eGFR For Non-African Americans 55 (> 60)
[2020-05-14] MEDS ORDERED: D5% in Water 1,000 ML IVC PRN (15:58)
[2020-05-14] MEDS ORDERED: Dextrose Gel 15 GM/37.5 ML TUBE PO PRN ×2 (15:58)
[2020-05-14] MEDS: Insulin LISPRO 300 UNITS/3 ML VIAL SQ SCH (16:59)
[2020-05-14] MEDS ORDERED: Furosemide 40 MG/4 ML VIAL IVP SCH (17:00)
[2020-05-14] MEDS ORDERED: 0.9 % Sodium Chloride 250 ML IVC ONE (19:28)
[2020-05-14] MEDS ORDERED: 0.9 % Sodium Chloride 250 ML ONE (19:30)
[2020-05-14] MEDS ORDERED: Albumin 25% 25gram/100mL 25 GM/100 ML IV.SOLN IVPB ONE (20:18)
[2020-05-15] MEDS: *HR* Dextrose 50 % in Water (Vial) 50 ML VIAL IVP PRN ×3 (03:58→12:19)
[2020-05-15] MEDS ORDERED: Chloraseptic Spray 177 ML BOTTLE MM PRN (04:04)
[2020-05-15] MEDS ORDERED: Morphine Sulfate 2 MG/ML SYRINGE IVP ONE (04:58)
[2020-05-15] MEDS ORDERED: *HR* Dextrose 50 % in Water (Vial) 50 ML VIAL IVP PRN (05:33)
[2020-05-15 06:27] LABS: Hemoglobin 10.9 g/dL (11.5-15.4); Mean Corpuscular HGB Conc 31.1 g/dL (31.6-35.5); Mean Corpuscular Hemoglobin 29.8 pg (28.0-33.3); Mean Corpuscular Volume 95.6 fL (83.0-100.0); Mean Platelet Volume 9.6 fL (9.4-12.4); Platelet Count 211 K/mcL (140-400); Red Blood Count 3.66 M/mcL (3.82-4.97); Red Cell Distribution Width 13.4 % (11.5-14.5); White Blood Count 5.3 K/mcL (4.3-11.1)
[2020-05-15 06:32] LABS: Prothrombin Time 11.9 Seconds (9.4-12.1)
[2020-05-15 06:53] LABS: Albumin 4.3 g/dL (3.5-5.7); Albumin/Globulin Ratio 1.7 (1.1-2.2); Bilirubin,Total 0.6 mg/dL (0.3-1.0); Calcium 9.1 mg/dL (8.6-10.3); Globulin 2.5 g/dL (2.4-3.5); Potassium 3.5 mEq/L (3.5-5.1); Total Protein 6.8 g/dL (6.4-8.9)
[2020-05-15] MEDS ORDERED: Nitroglycerin 0.4 MG TAB.SUBL SL PRN (07:24)
[2020-05-15] MEDS ORDERED: tiZANidine 4 MG TABLET PO PRN (07:24)
[2020-05-15] MEDS: Insulin LISPRO 300 UNITS/3 ML VIAL SQ SCH ×3 (08:01→17:42)
[2020-05-15] MEDS: polyethylene glycoL 3350 17 GM POWD.PACK PO SCH (08:30)
[2020-05-15] MEDS: Ranolazine 500 MG TAB.ER.12H PO SCH ×2 (08:30→20:25)
[2020-05-15] MEDS: Cholecalciferol (D-3) 1,000 UNIT (25MCG) TABLET PO SCH (08:31)
[2020-05-15] MEDS: Furosemide 40 MG/4 ML VIAL IVP SCH (08:31)
[2020-05-15] MEDS: Sacubitril/Valsartan 24/26 MG 1 TABLET PO SCH (08:31)
[2020-05-15] MEDS ORDERED: Sennosides 8.6 MG TABLET PO ONE (08:42)
[2020-05-15] MEDS ORDERED: Aspirin Enteric Coated 81 MG Tablet PO SCH (09:00)
[2020-05-15] MEDS ORDERED: Metoprolol XL (24 HR) Succ 25 MG TAB.ER.24H PO SCH (09:00)
[2020-05-15] MEDS: *HR* HYDROcodone/Acet 5/325 mg TABLET PO PRN ×2 (09:24→17:02)
[2020-05-15] MEDS: Metoprolol XL (24 HR) Succ 25 MG TAB.ER.24H PO SCH (12:55)
[2020-05-15 13:16] LABS: Hematocrit 36.9 % (35.3-44.9); Hemoglobin 11.5 g/dL (11.5-15.4)
[2020-05-15 14:40] LABS: Adenovirus Not Detected (Not Detect); Coronavirus 229E Not Detected (Not Detect); Coronavirus HKU1 Not Detected (Not Detect); Coronavirus NL63 Not Detected (Not Detect); Coronavirus OC43 Not Detected (Not Detect); Human Metapneumovirus Not Detected (Not Detect); Human Rhinovirus/Enterovirus Not Detected (Not Detect); Influenza A Subtype 2009 H1 Not Detected (Not Detect); Influenza B Not Detected (Not Detect); Parainfluenza Virus 1 Not Detected (Not Detect); Parainfluenza Virus 2 Not Detected (Not Detect); SARS-CoV-2 Not Detected (Not Detect)
[2020-05-15 14:41] LABS: Bordetella Pertussis Not Detected (Not Detect); Chlamydophila pneumoniae Not Detected (Not Detect); Mycoplasma pneumoniae Not Detected (Not Detect); Parainfluenza Virus 3 Not Detected (Not Detect); Parainfluenza Virus 4 Not Detected (Not Detect); Respiratory Syncytial Virus Not Detected (Not Detect)
[2020-05-15] MEDS ORDERED: D5% in 0.9% NACL 1,000 ML IVC SCH ×2 (18:00→18:10)
[2020-05-15] MEDS: *HR* LORazepam 0.5 MG TABLET PO PRN (20:25)
[2020-05-15 20:37] LABS: Hematocrit 38.5 % (35.3-44.9)
[2020-05-16 01:21] LABS: Basophils # 0.1 K/mcL (0.0-0.2); Basophils % 0.9 %; Eosinophils # 0.3 K/mcL (0.0-0.6); Eosinophils % 4.5 %; Hematocrit 37.8 % (35.3-44.9); Hemoglobin 11.6 g/dL (11.5-15.4); Immature Granulocytes % 0.5 % (0-4); Lymphocytes # 1.2 K/mcL (0.6-4.6); Lymphocytes % 19.9 %; Mean Corpuscular HGB Conc 30.7 g/dL (31.6-35.5); Mean Corpuscular Hemoglobin 29.1 pg (28.0-33.3); Mean Platelet Volume 9.6 fL (9.4-12.4); Monocytes # 0.4 K/mcL (0.0-1.3); Monocytes % 7.1 %; Neutrophils # 3.9 K/mcL (1.6-8.9); Platelet Count 274 K/mcL (140-400); Red Blood Count 3.98 M/mcL (3.82-4.97); Red Cell Distribution Width 13.6 % (11.5-14.5); Segmented Neutrophils % 67.1 %; White Blood Count 5.8 K/mcL (4.3-11.1)
[2020-05-16 01:42] LABS: Magnesium 2.3 mg/dL (1.6-2.6); Potassium 3.9 mEq/L (3.5-5.1)
[2020-05-16 02:05] LABS: Folate 10.5 ng/mL (3.0-16.0)
[2020-05-16] MEDS: *HR* HYDROcodone/Acet 5/325 mg TABLET PO PRN ×3 (05:00→21:08)
[2020-05-16] MEDS: Metoprolol XL (24 HR) Succ 25 MG TAB.ER.24H PO SCH (08:20)
[2020-05-16] MEDS: Cholecalciferol (D-3) 1,000 UNIT (25MCG) TABLET PO SCH (08:20)
[2020-05-16] MEDS: polyethylene glycoL 3350 17 GM POWD.PACK PO SCH (08:20)
[2020-05-16] MEDS: Ranolazine 500 MG TAB.ER.12H PO SCH ×2 (08:20→21:08)
[2020-05-16] MEDS: Aspirin Enteric Coated 325 MG Tablet PO SCH (08:20)
[2020-05-16] MEDS: Insulin LISPRO 300 UNITS/3 ML VIAL SQ SCH ×3 (08:21→16:59)
[2020-05-16] MEDS ORDERED: D10% in Water 500 ML IVC SCH (12:45)
[2020-05-16] MEDS: D10% in Water 500 ML IVC SCH (14:34)
[2020-05-16] MEDS ORDERED: Furosemide 40 MG/4 ML VIAL IVP ONE (15:51)
[2020-05-16] MEDS: Ondansetron 4 MG/2 ML VIAL IVP PRN (16:17)
[2020-05-16] MEDS: *HR* LORazepam 0.5 MG TABLET PO PRN (16:26)
[2020-05-16] MEDS ORDERED: *HR* LORazepam 0.5 MG TABLET PO ONE (20:33)
[2020-05-16] MEDS: Sacubitril/Valsartan 24/26 MG 1 TABLET PO SCH (21:08)
[2020-05-17] MEDS: *HR* HYDROcodone/Acet 5/325 mg TABLET PO PRN ×3 (04:39→20:49)
[2020-05-17] MEDS: D10% in Water 500 ML IVC SCH ×2 (04:44→13:31)
[2020-05-17 04:58] LABS: Basophils # 0.1 K/mcL (0.0-0.2); Basophils % 1.3 %; Eosinophils # 0.4 K/mcL (0.0-0.6); Eosinophils % 8.6 %; Hematocrit 37.7 % (35.3-44.9); Hemoglobin 11.8 g/dL (11.5-15.4); Immature Granulocytes % 0.2 % (0-4); Lymphocytes # 1.3 K/mcL (0.6-4.6); Mean Corpuscular HGB Conc 31.3 g/dL (31.6-35.5); Mean Corpuscular Hemoglobin 30.1 pg (28.0-33.3); Mean Corpuscular Volume 96.2 fL (83.0-100.0); Mean Platelet Volume 9.7 fL (9.4-12.4); Monocytes # 0.4 K/mcL (0.0-1.3); Monocytes % 8.6 %; Neutrophils # 2.5 K/mcL (1.6-8.9); Platelet Count 261 K/mcL (140-400); Red Blood Count 3.92 M/mcL (3.82-4.97); Red Cell Distribution Width 13.6 % (11.5-14.5); Segmented Neutrophils % 53.3 %; White Blood Count 4.8 K/mcL (4.3-11.1)
[2020-05-17 05:06] LABS: Calcium 9.5 mg/dL (8.6-10.3); Magnesium 1.9 mg/dL (1.6-2.6); Potassium 3.9 mEq/L (3.5-5.1)
[2020-05-17] MEDS: Sacubitril/Valsartan 24/26 MG 1 TABLET PO SCH ×2 (07:50→20:49)
[2020-05-17] MEDS: Furosemide 40 MG/4 ML VIAL IVP SCH (07:50)
[2020-05-17] MEDS: polyethylene glycoL 3350 17 GM POWD.PACK PO SCH (07:50)
[2020-05-17] MEDS: Ranolazine 500 MG TAB.ER.12H PO SCH ×2 (07:50→20:49)
[2020-05-17] MEDS: Aspirin Enteric Coated 325 MG Tablet PO SCH (07:50)
[2020-05-17] MEDS: Cholecalciferol (D-3) 1,000 UNIT (25MCG) TABLET PO SCH (07:50)
[2020-05-17] MEDS: Metoprolol XL (24 HR) Succ 25 MG TAB.ER.24H PO SCH (07:51)
[2020-05-17] MEDS: Insulin LISPRO 300 UNITS/3 ML VIAL SQ SCH ×3 (07:56→17:06)
[2020-05-17] MEDS: *HR* LORazepam 0.5 MG TABLET PO PRN (08:18)
[2020-05-17] MEDS: *HR* Dextrose 50 % in Water (Vial) 50 ML VIAL IVP PRN (12:12)
[2020-05-17] MEDS: ALPRAZolam 0.25 MG TABLET PO PRN ×2 (15:08→20:48)
[2020-05-18 02:47] LABS: Calcium 9.6 mg/dL (8.6-10.3); Magnesium 2.1 mg/dL (1.6-2.6); Phosphorous 4.2 mg/dL (2.7-4.5); Potassium 4.2 mEq/L (3.5-5.1)
[2020-05-18] MEDS: *HR* HYDROcodone/Acet 5/325 mg TABLET PO PRN ×3 (03:08→21:26)
[2020-05-18] MEDS: ALPRAZolam 0.25 MG TABLET PO PRN ×2 (08:53→16:29)
[2020-05-18] MEDS: Cholecalciferol (D-3) 1,000 UNIT (25MCG) TABLET PO SCH (08:53)
[2020-05-18] MEDS: Aspirin Enteric Coated 325 MG Tablet PO SCH (08:53)
[2020-05-18] MEDS: Metoprolol XL (24 HR) Succ 25 MG TAB.ER.24H PO SCH (08:53)
[2020-05-18] MEDS: Ranolazine 500 MG TAB.ER.12H PO SCH ×2 (08:53→21:26)
[2020-05-18] MEDS: polyethylene glycoL 3350 17 GM POWD.PACK PO SCH (08:54)
[2020-05-18] MEDS: Furosemide 40 MG/4 ML VIAL IVP SCH (08:54)
[2020-05-18] MEDS: Sacubitril/Valsartan 24/26 MG 1 TABLET PO SCH ×2 (08:54→21:27)
[2020-05-18] MEDS: Insulin LISPRO 300 UNITS/3 ML VIAL SQ SCH ×3 (08:55→17:55)
[2020-05-18] MEDS: D10% in Water 500 ML IVC SCH (08:55)
[2020-05-18] MEDS: Ondansetron 4 MG/2 ML VIAL IVP PRN (08:59)
[2020-05-18] MEDS ORDERED: 0.9 % Sodium Chloride 250 ML ONE (12:17)
[2020-05-18] MEDS: *HR* Heparin 5,000 UNIT/ML VIAL SQ SCH (16:30)
[2020-05-18] MEDS ORDERED: traZODone 50 MG TABLET PO PRN (18:00)
[2020-05-19 01:57] LABS: Basophils % 0.9 %; Eosinophils # 0.3 K/mcL (0.0-0.6); Eosinophils % 7.1 %; Hematocrit 39.4 % (35.3-44.9); Lymphocytes # 1.6 K/mcL (0.6-4.6); Lymphocytes % 34.2 %; Mean Corpuscular HGB Conc 30.5 g/dL (31.6-35.5); Mean Corpuscular Hemoglobin 28.8 pg (28.0-33.3); Mean Corpuscular Volume 94.5 fL (83.0-100.0); Mean Platelet Volume 9.7 fL (9.4-12.4); Monocytes # 0.4 K/mcL (0.0-1.3); Monocytes % 8.4 %; Neutrophils # 2.3 K/mcL (1.6-8.9); Platelet Count 258 K/mcL (140-400); Red Blood Count 4.17 M/mcL (3.82-4.97); Red Cell Distribution Width 13.6 % (11.5-14.5); Segmented Neutrophils % 49.4 %; White Blood Count 4.7 K/mcL (4.3-11.1)
[2020-05-19 02:19] LABS: Calcium 9.4 mg/dL (8.6-10.3); Phosphorous 4.1 mg/dL (2.7-4.5); Potassium 3.9 mEq/L (3.5-5.1)
[2020-05-19] MEDS: *HR* Heparin 5,000 UNIT/ML VIAL SQ SCH (06:08)
[2020-05-19] MEDS: Ranolazine 500 MG TAB.ER.12H PO SCH (08:34)
[2020-05-19] MEDS: ALPRAZolam 0.25 MG TABLET PO PRN (08:34)
[2020-05-19] MEDS: Sacubitril/Valsartan 24/26 MG 1 TABLET PO SCH (08:34)
[2020-05-19] MEDS: Cholecalciferol (D-3) 1,000 UNIT (25MCG) TABLET PO SCH (08:34)
[2020-05-19] MEDS: Aspirin Enteric Coated 325 MG Tablet PO SCH (08:34)
[2020-05-19] MEDS: Metoprolol XL (24 HR) Succ 25 MG TAB.ER.24H PO SCH (08:34)
[2020-05-19] MEDS: polyethylene glycoL 3350 17 GM POWD.PACK PO SCH (08:35)
[2020-05-19] MEDS: Furosemide 40 MG/4 ML VIAL IVP SCH (08:35)
[2020-05-19] MEDS: Insulin LISPRO 300 UNITS/3 ML VIAL SQ SCH ×2 (08:40→12:40)
[2020-05-19] MEDS ORDERED: BuPROPion XL (24 HR) 150 MG TABLET PO SCH (09:00)
[2020-05-19 11:54] VITALS: BP 115/77
[2020-05-19 22:17] LABS: Insulin, Free 27 uIU/mL (3-19)
[2020-05-20 09:08] LABS: Insulin, Total 34 uIU/mL (3-19); Proinsulin Intact 10.3 pmol/L (<=8.0)
== END 2020-05-19 13:14 | disposition home or self-care (01) | DRG 291 ==
LOC: 2ANU → SUATTDRO 13:38
PROVIDERS: ADMIT Student in an Organized Health Care Education/Training Program; ATTEND Internal Medicine

== ENCOUNTER 2021-01-20 18:47 | Inpatient (IN) ==
[2021-01-20 20:00] LABS: Basophils # 0.1 K/mcL (0.0-0.2); Basophils % 0.6 %; Eosinophils # 0.2 K/mcL (0.0-0.6); Eosinophils % 1.4 %; Hemoglobin 16.8 g/dL (11.5-15.4); Immature Granulocytes % 0.5 % (0-4); Lymphocytes # 3.2 K/mcL (0.6-4.6); Lymphocytes % 24.2 %; Mean Corpuscular HGB Conc 33.6 g/dL (31.6-35.5); Mean Corpuscular Hemoglobin 30.7 pg (28.0-33.3); Mean Corpuscular Volume 91.2 fL (83.0-100.0); Mean Platelet Volume 9.6 fL (9.4-12.4); Monocytes # 0.8 K/mcL (0.0-1.3); Monocytes % 5.7 %; Neutrophils # 8.9 K/mcL (1.6-8.9); Platelet Count 395 K/mcL (140-400); Red Blood Count 5.48 M/mcL (3.82-4.97); Red Cell Distribution Width 12.6 % (11.5-14.5); Segmented Neutrophils % 67.6 %; White Blood Count 13.1 K/mcL (4.3-11.1)
[2021-01-20 20:09] LABS: BUN/Creatinine Ratio 18 (6-26); Blood Urea Nitrogen 27 mg/dL (6-20); Calcium 10.4 mg/dL (8.6-10.3); Carbon Dioxide 24 mEq/L (23-29); Chloride 99 mEq/L (98-107); Glucose 105 mg/dL (70-105); Osmolality,Calculated 287 (280-300); Potassium 3.2 mEq/L (3.5-5.1); Sodium 136 mEq/L (136-145); Troponin I < 0.03 ng/mL (< 0.04); eGFR For African Americans 44 (> 60); eGFR For Non-African Americans 36 (> 60)
[2021-01-20 20:20] LABS: INR 1.1; Prothrombin Time 12.9 Seconds (9.4-12.1)
[2021-01-20] MEDS ORDERED: *HR* FentaNYL (PF) 100 MCG/2 ML VIAL IVP ONE (20:41)
[2021-01-20 21:03] LABS: Bacteria,Urine Few per hpf (None-Few); Bilirubin,Urine Negative (Negative); Blood,Urine Negative (Negative); Clarity,Urine Clear (Clear); Color,Urine Yellow (Yellow); Glucose,Urine (UA) Normal (Normal); Hyaline Casts,Urine Many per lpf (None Seen); Ketones,Urine Negative (Negative); Leukocyte Esterase,Urine Negative (Negative); Mucus,Urine Few per lpf (None-Few); Nitrite,Urine Negative (Negative); Protein,Urine 70 mg/dL (Neg-Trace); Specific Gravity,Urine > 1.030 (1.010-1.025); Squamous Epithelial Cell,Urine Moderate per hpf (None-Few); Urobilinogen,Urine Normal (Normal)
[2021-01-20] MEDS ORDERED: Nitroglycerin 0.4 MG TAB.SUBL SL ONE (21:07)
[2021-01-20] MEDS ORDERED: Aspirin 325 MG TABLET PO ONE (21:07)
[2021-01-20] MEDS ORDERED: 0.9 % Sodium Chloride 1,000 ML IVC SCH (21:30)
[2021-01-20] MEDS ORDERED: Naloxone 0.4 MG/ML INJ IVP PRN (21:35)
[2021-01-20] MEDS ORDERED: Nitroglycerin 0.4 MG TAB.SUBL SL PRN (21:38)
[2021-01-20] MEDS: Morphine Sulfate 2 MG/ML SYRINGE IVP PRN (23:24)
[2021-01-20] MEDS: 0.9 % Sodium Chloride 1,000 ML IVC SCH (23:24)
[2021-01-20] MEDS ORDERED: Potassium Chloride Elixir 20 MEQ/15 ML UDC PO ONE (23:33)
[2021-01-20] MEDS ORDERED: Perflutren Lipid Microsphere 1.3 ML in 0.9 % Sodium Chloride 8.7 ML IVP PRN (23:39)
[2021-01-21] MEDS: Nitroglycerin 0.1 MG PATCH.TD24 TD SCH (01:00)
[2021-01-21] MEDS: Ondansetron 4 MG/2 ML VIAL IVP PRN ×3 (01:08→21:16)
[2021-01-21 01:32] LABS: Hematocrit 47.2 % (35.3-44.9); Hemoglobin 15.3 g/dL (11.5-15.4); Mean Corpuscular HGB Conc 32.4 g/dL (31.6-35.5); Mean Corpuscular Hemoglobin 30.7 pg (28.0-33.3); Mean Corpuscular Volume 94.6 fL (83.0-100.0); Mean Platelet Volume 9.6 fL (9.4-12.4); Platelet Count 289 K/mcL (140-400); Red Blood Count 4.99 M/mcL (3.82-4.97); Red Cell Distribution Width 12.8 % (11.5-14.5); White Blood Count 9.3 K/mcL (4.3-11.1)
[2021-01-21 01:56] LABS: BUN/Creatinine Ratio 22 (6-26); Blood Urea Nitrogen 28 mg/dL (6-20); Calcium 9.4 mg/dL (8.6-10.3); Carbon Dioxide 24 mEq/L (23-29); Chloride 100 mEq/L (98-107); Glucose 124 mg/dL (70-105); Osmolality,Calculated 289 (280-300); Potassium 3.3 mEq/L (3.5-5.1); Sodium 136 mEq/L (136-145); Troponin I < 0.03 ng/mL (< 0.04); eGFR For African Americans 52 (> 60); eGFR For Non-African Americans 43 (> 60)
[2021-01-21] MEDS: Morphine Sulfate 2 MG/ML SYRINGE IVP PRN ×4 (03:42→21:03)
[2021-01-21] MEDS: *HR* Promethazine 25 MG/ML VIAL IM PRN ×3 (04:38→23:05)
[2021-01-21] MEDS: 0.9 % Sodium Chloride 1,000 ML IVC SCH (10:18)
[2021-01-21] MEDS ORDERED: *HR* LORazepam 0.5 MG TABLET PO PRN (15:42)
[2021-01-21] MEDS ORDERED: tiZANidine 4 MG TABLET PO PRN (15:42)
[2021-01-21] MEDS ORDERED: traZODone 50 MG TABLET PO PRN (16:19)
[2021-01-21] MEDS: carvediloL 25 MG TABLET PO SCH (16:45)
[2021-01-22] MEDS: Nitroglycerin 0.1 MG PATCH.TD24 TD SCH (01:19)
[2021-01-22] MEDS: 0.9 % Sodium Chloride 1,000 ML IVC SCH (01:19)
[2021-01-22] MEDS: Morphine Sulfate 2 MG/ML SYRINGE IVP PRN ×5 (01:24→21:28)
[2021-01-22 04:47] LABS: BUN/Creatinine Ratio 20 (6-26); Blood Urea Nitrogen 19 mg/dL (6-20); Calcium 8.6 mg/dL (8.6-10.3); Carbon Dioxide 22 mEq/L (23-29); Chloride 109 mEq/L (98-107); Glucose 92 mg/dL (70-105); Osmolality,Calculated 288 (280-300); Potassium 3.9 mEq/L (3.5-5.1); Sodium 138 mEq/L (136-145); eGFR For African Americans > 60 (> 60); eGFR For Non-African Americans > 60 (> 60)
[2021-01-22] MEDS: Ondansetron 4 MG/2 ML VIAL IVP PRN ×2 (05:54→16:36)
[2021-01-22] MEDS: Aspirin Enteric Coated 81 MG Tablet PO SCH (09:32)
[2021-01-22] MEDS: carvediloL 25 MG TABLET PO SCH ×2 (09:32→18:42)
[2021-01-22] MEDS: BuPROPion XL (24 HR) 150 MG TABLET PO SCH (09:32)
[2021-01-22] MEDS: polyethylene glycoL 3350 17 GM POWD.PACK PO SCH (09:32)
[2021-01-22] MEDS: Furosemide 40 MG TABLET PO SCH (09:32)
[2021-01-22] MEDS: *HR* Promethazine 25 MG/ML VIAL IM PRN ×2 (09:33→22:53)
[2021-01-23] MEDS: Nitroglycerin 0.1 MG PATCH.TD24 TD SCH (01:42)
[2021-01-23] MEDS: Morphine Sulfate 2 MG/ML SYRINGE IVP PRN ×4 (01:45→20:34)
[2021-01-23] MEDS: 0.9 % Sodium Chloride 1,000 ML IVC SCH ×2 (02:14→02:15)
[2021-01-23] MEDS: Ondansetron 4 MG/2 ML VIAL IVP PRN ×2 (02:19→12:03)
[2021-01-23 03:06] LABS: BUN/Creatinine Ratio 15 (6-26); Blood Urea Nitrogen 14 mg/dL (6-20); Calcium 8.5 mg/dL (8.6-10.3); Carbon Dioxide 24 mEq/L (23-29); Chloride 109 mEq/L (98-107); Glucose 100 mg/dL (70-105); Osmolality,Calculated 289 (280-300); Potassium 3.6 mEq/L (3.5-5.1); Sodium 139 mEq/L (136-145); eGFR For African Americans > 60 (> 60); eGFR For Non-African Americans 59 (> 60)
[2021-01-23 04:26] LABS: Hematocrit 42.1 % (35.3-44.9); Mean Corpuscular HGB Conc 32.1 g/dL (31.6-35.5); Mean Corpuscular Volume 96.6 fL (83.0-100.0); Mean Platelet Volume 9.5 fL (9.4-12.4); Platelet Count 239 K/mcL (140-400); Red Blood Count 4.36 M/mcL (3.82-4.97); Red Cell Distribution Width 12.6 % (11.5-14.5); Segmented Neutrophils % 61.5 %; White Blood Count 7.3 K/mcL (4.3-11.1)
[2021-01-23 04:27] LABS: Basophils # 0.1 K/mcL (0.0-0.2); Basophils % 0.7 %; Eosinophils # 0.4 K/mcL (0.0-0.6); Eosinophils % 5.2 %; Immature Granulocytes % 0.4 % (0-4); Lymphocytes # 1.8 K/mcL (0.6-4.6); Monocytes # 0.5 K/mcL (0.0-1.3); Monocytes % 7.2 %; Neutrophils # 4.5 K/mcL (1.6-8.9)
[2021-01-23 04:30] LABS: Hemoglobin 13.5 g/dL (11.5-15.4)
[2021-01-23] MEDS: polyethylene glycoL 3350 17 GM POWD.PACK PO SCH (08:15)
[2021-01-23] MEDS: lisinopriL 10 MG TABLET PO SCH (08:16)
[2021-01-23] MEDS: carvediloL 25 MG TABLET PO SCH ×2 (08:16→16:15)
[2021-01-23] MEDS: Aspirin Enteric Coated 81 MG Tablet PO SCH (08:16)
[2021-01-23] MEDS: Furosemide 40 MG TABLET PO SCH (08:16)
[2021-01-23] MEDS: BuPROPion XL (24 HR) 150 MG TABLET PO SCH (08:16)
[2021-01-23] MEDS: *HR* Promethazine 25 MG/ML VIAL IM PRN ×2 (08:19→17:07)
[2021-01-23] MEDS: Sennosides/Docusate Sodium TABLET PO SCH ×2 (12:03→20:33)
[2021-01-24] MEDS: Nitroglycerin 0.1 MG PATCH.TD24 TD SCH (06:14)
[2021-01-24] MEDS: *HR* Enoxaparin 40 MG/0.4 ML SYRINGE SQ SCH (06:15)
[2021-01-24] MEDS: Morphine Sulfate 2 MG/ML SYRINGE IVP PRN ×2 (06:15→10:21)
[2021-01-24] MEDS: polyethylene glycoL 3350 17 GM POWD.PACK PO SCH (08:55)
[2021-01-24] MEDS: Aspirin Enteric Coated 81 MG Tablet PO SCH (08:55)
[2021-01-24] MEDS: Ondansetron 4 MG/2 ML VIAL IVP PRN (08:55)
[2021-01-24] MEDS: BuPROPion XL (24 HR) 150 MG TABLET PO SCH (08:55)
[2021-01-24] MEDS: Sennosides/Docusate Sodium TABLET PO SCH ×2 (08:55→19:50)
[2021-01-24] MEDS: carvediloL 25 MG TABLET PO SCH ×2 (08:55→15:17)
[2021-01-24] MEDS: Furosemide 40 MG TABLET PO SCH (08:55)
[2021-01-24] MEDS: lisinopriL 10 MG TABLET PO SCH (08:55)
[2021-01-24] MEDS ORDERED: Furosemide 40 MG/4 ML VIAL IVP ONE (11:26)
[2021-01-24] MEDS: *HR* Promethazine 25 MG/ML VIAL IM PRN (13:02)
[2021-01-24] MEDS ORDERED: Acetaminophen 325 MG TABLET PO PRN (15:11)
[2021-01-25] MEDS: *HR* Enoxaparin 40 MG/0.4 ML SYRINGE SQ SCH (05:57)
[2021-01-25] MEDS: Sennosides/Docusate Sodium TABLET PO SCH (08:26)
[2021-01-25] MEDS: Nitroglycerin 0.1 MG PATCH.TD24 TD SCH (08:26)
[2021-01-25] MEDS: Aspirin Enteric Coated 81 MG Tablet PO SCH (08:26)
[2021-01-25] MEDS: lisinopriL 10 MG TABLET PO SCH (08:28)
[2021-01-25] MEDS: carvediloL 25 MG TABLET PO SCH (08:28)
[2021-01-25] MEDS: BuPROPion XL (24 HR) 150 MG TABLET PO SCH (08:28)
[2021-01-25] MEDS: Ondansetron 4 MG/2 ML VIAL IVP PRN (08:29)
[2021-01-25] MEDS: polyethylene glycoL 3350 17 GM POWD.PACK PO SCH (08:29)
[2021-01-25] MEDS ORDERED: Furosemide 40 MG/4 ML VIAL IVP SCH (09:00)
[2021-01-25] MEDS: *HR* Promethazine 25 MG/ML VIAL IM PRN (10:14)
[2021-01-25 10:30] LABS: BUN/Creatinine Ratio 15 (6-26); Blood Urea Nitrogen 17 mg/dL (6-20); Calcium 9.9 mg/dL (8.6-10.3); Carbon Dioxide 24 mEq/L (23-29); Chloride 104 mEq/L (98-107); Glucose 131 mg/dL (70-105); Osmolality,Calculated 289 (280-300); Potassium 3.7 mEq/L (3.5-5.1); Sodium 138 mEq/L (136-145); eGFR For African Americans > 60 (> 60); eGFR For Non-African Americans 51 (> 60)
[2021-01-25 10:56] VITALS: BP 117/75
== END 2021-01-25 16:40 | disposition home or self-care (01) | DRG 149 ==
LOC: EMEROOARM 18:47 → 3NENU 18:47 → SUATTDRO 21:40 → 3NENU 22:51
PROVIDERS: ADMIT Internal Medicine; ATTEND Student in an Organized Health Care Education/Training Program

== ENCOUNTER 2021-04-25 12:12 | Inpatient (IN) ==
[2021-04-25] MEDS ORDERED: Naloxone 0.4 MG/ML INJ IVP PRN (18:31)
[2021-04-25] MEDS ORDERED: Perflutren Lipid Microsphere 1.3 ML in 0.9 % Sodium Chloride 8.7 ML IVP PRN (18:34)
[2021-04-25] MEDS: 0.9 % Sodium Chloride 1,000 ML IVC SCH (19:52)
[2021-04-25] MEDS: cefTRIAXone 1,000 MG in Water for inj. (sterile) 10 ML IVP SCH (19:53)
[2021-04-25] MEDS: carvediloL 25 MG TABLET PO SCH (19:54)
[2021-04-25] MEDS: *HR* Heparin 5,000 UNIT/ML VIAL SQ SCH (19:54)
[2021-04-25] MEDS: Sacubitril/Valsartan 24/26 MG 1 TABLET PO SCH (19:54)
[2021-04-25 19:56] LABS: Thyroid Stimulating Hormone 1.522 mcIU/mL (0.340-5.600)
[2021-04-25] MEDS: traZODone 50 MG TABLET PO PRN (21:34)
[2021-04-25 22:24] LABS: Bilirubin,Urine Negative (Negative); Blood,Urine Negative (Negative); Clarity,Urine Clear (Clear); Color,Urine Light-Yellow (Yellow); Glucose,Urine (UA) Normal (Normal); Ketones,Urine Negative (Negative); Leukocyte Esterase,Urine Negative (Negative); Nitrite,Urine Negative (Negative); Protein,Urine Negative (Neg-Trace); Specific Gravity,Urine 1.014 (1.010-1.025); Urobilinogen,Urine Normal (Normal)
[2021-04-26] MEDS: *HR* Heparin 5,000 UNIT/ML VIAL SQ SCH ×2 (04:08→16:30)
[2021-04-26 04:51] LABS: Basophils % 0.7 %; Eosinophils # 0.2 K/mcL (0.0-0.6); Eosinophils % 4.1 %; Hematocrit 41.3 % (35.3-44.9); Immature Granulocytes % 0.2 % (0-4); Lymphocytes # 1.4 K/mcL (0.6-4.6); Lymphocytes % 23.1 %; Mean Corpuscular HGB Conc 31.5 g/dL (31.6-35.5); Mean Corpuscular Hemoglobin 30.8 pg (28.0-33.3); Mean Corpuscular Volume 97.9 fL (83.0-100.0); Mean Platelet Volume 9.9 fL (9.4-12.4); Monocytes # 0.3 K/mcL (0.0-1.3); Monocytes % 5.6 %; Neutrophils # 3.9 K/mcL (1.6-8.9); Platelet Count 213 K/mcL (140-400); Red Blood Count 4.22 M/mcL (3.82-4.97); Red Cell Distribution Width 13.9 % (11.5-14.5); Segmented Neutrophils % 66.3 %; White Blood Count 5.9 K/mcL (4.3-11.1)
[2021-04-26 05:08] LABS: BUN/Creatinine Ratio 15 (6-26); Blood Urea Nitrogen 13 mg/dL (6-20); Calcium 8.8 mg/dL (8.6-10.3); Carbon Dioxide 22 mEq/L (23-29); Chloride 112 mEq/L (98-107); Glucose 94 mg/dL (70-105); Magnesium 1.9 mg/dL (1.6-2.6); Osmolality,Calculated 288 (280-300); Phosphorous 2.9 mg/dL (2.7-4.5); Potassium 4.3 mEq/L (3.5-5.1); Sodium 139 mEq/L (136-145); eGFR For African Americans > 60 (> 60); eGFR For Non-African Americans > 60 (> 60)
[2021-04-26] MEDS: 0.9 % Sodium Chloride 1,000 ML IVC SCH (07:03)
[2021-04-26] MEDS: Sacubitril/Valsartan 24/26 MG 1 TABLET PO SCH (07:45)
[2021-04-26] MEDS: carvediloL 25 MG TABLET PO SCH ×2 (07:45→16:30)
[2021-04-26] MEDS: Aspirin Enteric Coated 81 MG Tablet PO SCH (07:46)
[2021-04-26] MEDS: cefTRIAXone 1,000 MG in Water for inj. (sterile) 10 ML IVP SCH (07:46)
[2021-04-26] MEDS ORDERED: lisinopriL 10 MG TABLET PO SCH (09:00)
[2021-04-26] MEDS ORDERED: Nitroglycerin 0.4 MG TAB.SUBL SL PRN (12:29)
[2021-04-26] MEDS ORDERED: *HR* LORazepam 0.5 MG TABLET PO PRN (12:29)
[2021-04-26] MEDS ORDERED: tiZANidine 4 MG TABLET PO PRN (12:29)
[2021-04-26] MEDS: Sacubitril/Valsartan 49/51 MG 1 TABLET PO SCH (20:00)
[2021-04-26] MEDS: traZODone 50 MG TABLET PO PRN (20:00)
[2021-04-27] MEDS: *HR* Heparin 5,000 UNIT/ML VIAL SQ SCH ×2 (05:24→16:46)
[2021-04-27] MEDS: polyethylene glycoL 3350 17 GM POWD.PACK PO SCH (08:42)
[2021-04-27] MEDS: Cyanocobalamin (B-12) 1,000 MCG TABLET PO SCH (08:44)
[2021-04-27] MEDS: BuPROPion XL (24 HR) 150 MG TABLET PO SCH (08:44)
[2021-04-27] MEDS: Aspirin Enteric Coated 81 MG Tablet PO SCH (08:44)
[2021-04-27] MEDS: Furosemide 20 MG TABLET PO SCH (08:44)
[2021-04-27] MEDS: carvediloL 25 MG TABLET PO SCH ×2 (08:44→16:45)
[2021-04-27] MEDS: Cholecalciferol (D-3) 1,000 UNIT (25MCG) TABLET PO SCH (08:44)
[2021-04-27] MEDS ORDERED: Acetaminophen 325 MG TABLET PO PRN (10:52)
[2021-04-27] MEDS ORDERED: Ondansetron ODT 4 MG TAB.RAPDIS SL ONE (10:53)
[2021-04-27] MEDS: Sacubitril/Valsartan 49/51 MG 1 TABLET PO SCH ×2 (12:49→20:39)
[2021-04-27] MEDS ORDERED: Acetaminophen IV 500 MG/50 ML BAG IVPB ONE (17:54)
[2021-04-27] MEDS ORDERED: Acetaminophen IV 1,000 MG/100 ML BAG IVPB ONE (22:05)
[2021-04-28 01:56] LABS: Hematocrit 42.3 % (35.3-44.9); Red Cell Distribution Width 13.8 % (11.5-14.5); White Blood Count 5.7 K/mcL (4.3-11.1)
[2021-04-28 01:58] LABS: Hemoglobin 13.5 g/dL (11.5-15.4); Immature Platelets 4.3 % (1.1-6.1); Mean Corpuscular HGB Conc 31.9 g/dL (31.6-35.5); Mean Corpuscular Hemoglobin 31.2 pg (28.0-33.3); Mean Corpuscular Volume 97.7 fL (83.0-100.0); Mean Platelet Volume 10.9 fL (9.4-12.4); Red Blood Count 4.33 M/mcL (3.82-4.97)
[2021-04-28 02:17] LABS: BUN/Creatinine Ratio 13 (6-26); Blood Urea Nitrogen 14 mg/dL (6-20); Calcium 9.3 mg/dL (8.6-10.3); Carbon Dioxide 21 mEq/L (23-29); Chloride 107 mEq/L (98-107); Glucose 88 mg/dL (70-105); Osmolality,Calculated 286 (280-300); Potassium 3.8 mEq/L (3.5-5.1); Sodium 138 mEq/L (136-145); eGFR For African Americans > 60 (> 60); eGFR For Non-African Americans 50 (> 60)
[2021-04-28] MEDS: *HR* Heparin 5,000 UNIT/ML VIAL SQ SCH (05:13)
[2021-04-28] MEDS: Ondansetron 4 MG/2 ML VIAL IVP PRN (05:45)
[2021-04-28] MEDS: polyethylene glycoL 3350 17 GM POWD.PACK PO SCH (08:22)
[2021-04-28] MEDS: Sacubitril/Valsartan 49/51 MG 1 TABLET PO SCH ×2 (08:24→20:45)
[2021-04-28] MEDS: Spironolactone 25 MG TABLET PO SCH (08:24)
[2021-04-28] MEDS: Furosemide 20 MG TABLET PO SCH (08:24)
[2021-04-28] MEDS: Cyanocobalamin (B-12) 1,000 MCG TABLET PO SCH (08:24)
[2021-04-28] MEDS: BuPROPion XL (24 HR) 150 MG TABLET PO SCH (08:24)
[2021-04-28] MEDS: Aspirin Enteric Coated 81 MG Tablet PO SCH (08:24)
[2021-04-28] MEDS: Cholecalciferol (D-3) 1,000 UNIT (25MCG) TABLET PO SCH (08:24)
[2021-04-28] MEDS: carvediloL 25 MG TABLET PO SCH ×2 (08:25→18:07)
[2021-04-29 03:50] LABS: BUN/Creatinine Ratio 14 (6-26); Blood Urea Nitrogen 15 mg/dL (6-20); Calcium 9.8 mg/dL (8.6-10.3); Carbon Dioxide 23 mEq/L (23-29); Chloride 105 mEq/L (98-107); Glucose 83 mg/dL (70-105); Osmolality,Calculated 288 (280-300); Potassium 3.4 mEq/L (3.5-5.1); Sodium 139 mEq/L (136-145); eGFR For African Americans > 60 (> 60); eGFR For Non-African Americans 52 (> 60)
[2021-04-29] MEDS: Spironolactone 25 MG TABLET PO SCH (08:49)
[2021-04-29] MEDS: Cholecalciferol (D-3) 1,000 UNIT (25MCG) TABLET PO SCH (08:49)
[2021-04-29] MEDS: Aspirin Enteric Coated 81 MG Tablet PO SCH (08:49)
[2021-04-29] MEDS: Furosemide 20 MG TABLET PO SCH (08:49)
[2021-04-29] MEDS: BuPROPion XL (24 HR) 150 MG TABLET PO SCH (08:49)
[2021-04-29] MEDS: Cyanocobalamin (B-12) 1,000 MCG TABLET PO SCH (08:49)
[2021-04-29] MEDS: carvediloL 25 MG TABLET PO SCH ×2 (08:49→17:24)
[2021-04-29] MEDS: polyethylene glycoL 3350 17 GM POWD.PACK PO SCH (08:49)
[2021-04-29 09:49] LABS: Hematocrit 43.4 % (35.3-44.9); Hemoglobin 14.1 g/dL (11.5-15.4); Mean Corpuscular HGB Conc 32.5 g/dL (31.6-35.5); Mean Corpuscular Hemoglobin 31.6 pg (28.0-33.3); Mean Corpuscular Volume 97.3 fL (83.0-100.0); Mean Platelet Volume 10.4 fL (9.4-12.4); Platelet Count 253 K/mcL (140-400); Red Blood Count 4.46 M/mcL (3.82-4.97); Red Cell Distribution Width 13.8 % (11.5-14.5); White Blood Count 5.7 K/mcL (4.3-11.1)
[2021-04-29] MEDS: Sacubitril/Valsartan 49/51 MG 1 TABLET PO SCH ×2 (10:52→21:53)
[2021-04-29] MEDS ORDERED: 0.9 % Sodium Chloride 250 ML IVC SCH (16:45)
[2021-04-30 04:42] LABS: Hematocrit 42.9 % (35.3-44.9); Hemoglobin 14.1 g/dL (11.5-15.4); Mean Corpuscular HGB Conc 32.9 g/dL (31.6-35.5); Mean Corpuscular Hemoglobin 31.5 pg (28.0-33.3); Mean Platelet Volume 9.9 fL (9.4-12.4); Platelet Count 250 K/mcL (140-400); Red Blood Count 4.47 M/mcL (3.82-4.97); Red Cell Distribution Width 13.6 % (11.5-14.5); White Blood Count 5.5 K/mcL (4.3-11.1)
[2021-04-30 04:54] LABS: BUN/Creatinine Ratio 13 (6-26); Blood Urea Nitrogen 14 mg/dL (6-20); Calcium 9.6 mg/dL (8.6-10.3); Carbon Dioxide 27 mEq/L (23-29); Chloride 104 mEq/L (98-107); Glucose 90 mg/dL (70-105); Osmolality,Calculated 286 (280-300); Potassium 3.5 mEq/L (3.5-5.1); Sodium 138 mEq/L (136-145); eGFR For African Americans > 60 (> 60); eGFR For Non-African Americans 50 (> 60)
[2021-04-30] MEDS: carvediloL 25 MG TABLET PO SCH ×2 (07:23→16:18)
[2021-04-30] MEDS: Aspirin Enteric Coated 81 MG Tablet PO SCH (08:54)
[2021-04-30] MEDS: Spironolactone 25 MG TABLET PO SCH (08:54)
[2021-04-30] MEDS: Furosemide 20 MG TABLET PO SCH (08:54)
[2021-04-30] MEDS: Cyanocobalamin (B-12) 1,000 MCG TABLET PO SCH (08:55)
[2021-04-30] MEDS: BuPROPion XL (24 HR) 150 MG TABLET PO SCH (08:55)
[2021-04-30] MEDS: Cholecalciferol (D-3) 1,000 UNIT (25MCG) TABLET PO SCH (08:57)
[2021-04-30] MEDS: Ondansetron 4 MG/2 ML VIAL IVP PRN (08:57)
[2021-04-30] MEDS: polyethylene glycoL 3350 17 GM POWD.PACK PO SCH (09:02)
[2021-04-30] MEDS: Sacubitril/Valsartan 49/51 MG 1 TABLET PO SCH ×2 (09:06→19:56)
[2021-05-01] MEDS: Ondansetron 4 MG/2 ML VIAL IVP PRN ×2 (00:17→11:00)
[2021-05-01] MEDS: traZODone 50 MG TABLET PO PRN (00:20)
[2021-05-01 06:16] LABS: Hemoglobin 14.7 g/dL (11.5-15.4); Mean Corpuscular HGB Conc 33.4 g/dL (31.6-35.5); Mean Corpuscular Hemoglobin 32.2 pg (28.0-33.3); Mean Corpuscular Volume 96.3 fL (83.0-100.0); Mean Platelet Volume 10.1 fL (9.4-12.4); Platelet Count 248 K/mcL (140-400); Red Blood Count 4.57 M/mcL (3.82-4.97); Red Cell Distribution Width 13.7 % (11.5-14.5); White Blood Count 5.4 K/mcL (4.3-11.1)
[2021-05-01 06:33] LABS: Potassium 3.6 mEq/L (3.5-5.1)
[2021-05-01] MEDS: Sacubitril/Valsartan 49/51 MG 1 TABLET PO SCH ×2 (08:03→20:33)
[2021-05-01] MEDS: carvediloL 25 MG TABLET PO SCH (08:29)
[2021-05-01] MEDS: Furosemide 20 MG TABLET PO SCH (08:30)
[2021-05-01] MEDS: Aspirin Enteric Coated 81 MG Tablet PO SCH (08:30)
[2021-05-01] MEDS: polyethylene glycoL 3350 17 GM POWD.PACK PO SCH (08:30)
[2021-05-01] MEDS: Spironolactone 25 MG TABLET PO SCH (08:30)
[2021-05-01] MEDS: Cyanocobalamin (B-12) 1,000 MCG TABLET PO SCH (08:30)
[2021-05-01] MEDS: Cholecalciferol (D-3) 1,000 UNIT (25MCG) TABLET PO SCH (08:30)
[2021-05-01] MEDS: BuPROPion XL (24 HR) 150 MG TABLET PO SCH (08:30)
[2021-05-01 10:19] LABS: Calcium 9.6 mg/dL (8.6-10.3)
[2021-05-01] MEDS: 0.9 % Sodium Chloride 1,000 ML IVC SCH (10:50)
[2021-05-01] MEDS: carvediloL 6.25 MG TABLET PO SCH (16:42)
[2021-05-01] MEDS ORDERED: Ketorolac 30 MG/ML VIAL IVP ONE (20:46)
[2021-05-02] MEDS: 0.9 % Sodium Chloride 1,000 ML IVC SCH ×3 (00:04→14:39)
[2021-05-02 01:54] LABS: Calcium 9.2 mg/dL (8.6-10.3); Potassium 3.5 mEq/L (3.5-5.1)
[2021-05-02 03:22] VITALS: O2SAT 95
[2021-05-02] MEDS: Cholecalciferol (D-3) 1,000 UNIT (25MCG) TABLET PO SCH (08:55)
[2021-05-02] MEDS: BuPROPion XL (24 HR) 150 MG TABLET PO SCH (08:55)
[2021-05-02] MEDS: Furosemide 20 MG TABLET PO SCH (08:55)
[2021-05-02] MEDS: Aspirin Enteric Coated 81 MG Tablet PO SCH (08:56)
[2021-05-02] MEDS: polyethylene glycoL 3350 17 GM POWD.PACK PO SCH (08:56)
[2021-05-02] MEDS: Cyanocobalamin (B-12) 1,000 MCG TABLET PO SCH (08:56)
[2021-05-02] MEDS: carvediloL 6.25 MG TABLET PO SCH ×2 (08:56→18:37)
[2021-05-02] MEDS ORDERED: Sacubitril/Valsartan 24/26 MG 1 TABLET PO SCH (09:00)
[2021-05-02] MEDS ORDERED: Isovue-370 500 ML BOTTLE IVP ONE (09:56)
[2021-05-02 16:03] VITALS: BP 130/83; PULSE 69; TEMP 98
== END 2021-05-02 18:45 | disposition home or self-care (01) | DRG 312 ==
LOC: 3BNU → SUATTDRO 17:42 → 3BNU 04-28 21:42
PROVIDERS: ADMIT Student in an Organized Health Care Education/Training Program; ATTEND Registered Nurse

== ENCOUNTER 2021-05-30 11:35 | Inpatient (IN) ==
[2021-05-30] MEDS ORDERED: Vancomycin 2,000 MG/520 ML IV.SOLN IVPB ONE (15:37)
[2021-05-30] MEDS ORDERED: Naloxone 0.4 MG/ML INJ IVP PRN (15:51)
[2021-05-30] MEDS ORDERED: Metoprolol XL (24 HR) Succ 25 MG TAB.ER.24H PO SCH (16:00)
[2021-05-30] MEDS: Spironolactone 25 MG TABLET PO SCH (16:11)
[2021-05-30] MEDS: carvediloL 25 MG TABLET PO SCH (16:12)
[2021-05-30] MEDS: Ipratropium/Albuterol Neb 3 ML IH SCH ×3 (16:12→23:30)
[2021-05-30] MEDS: Ondansetron ODT 4 MG TAB.RAPDIS SL PRN (20:53)
[2021-05-30] MEDS: Furosemide 20 MG/2 ML VIAL IVP SCH (21:45)
[2021-05-30] MEDS: Cefepime HCl 2,000 MG in 0.9 % Sodium Chloride Mini Bag 100 ML IVPB SCH (21:46)
[2021-05-30 22:19] LABS: Basophils # 0.1 K/mcL (0.0-0.2); Basophils % 0.4 %; Eosinophils # 0.1 K/mcL (0.0-0.6); Eosinophils % 0.5 %; Hematocrit 42.4 % (35.3-44.9); Hemoglobin 14.1 g/dL (11.5-15.4); Immature Granulocytes % 0.6 % (0-4); Lymphocytes # 1.5 K/mcL (0.6-4.6); Lymphocytes % 12.1 %; Mean Corpuscular HGB Conc 33.3 g/dL (31.6-35.5); Mean Corpuscular Hemoglobin 31.7 pg (28.0-33.3); Mean Corpuscular Volume 95.3 fL (83.0-100.0); Mean Platelet Volume 9.8 fL (9.4-12.4); Monocytes # 0.8 K/mcL (0.0-1.3); Monocytes % 6.8 %; Neutrophils # 9.9 K/mcL (1.6-8.9); Platelet Count 283 K/mcL (140-400); Red Blood Count 4.45 M/mcL (3.82-4.97); Red Cell Distribution Width 13.3 % (11.5-14.5); Segmented Neutrophils % 79.6 %; White Blood Count 12.4 K/mcL (4.3-11.1)
[2021-05-30 22:44] LABS: Alanine Aminotransferase 13 Units/L (7-52); Albumin 3.8 g/dL (3.5-5.7); Albumin/Globulin Ratio 1.3 (1.1-2.2); Alkaline Phosphatase 66 Units/L (34-104); Aspartate Amino Transferase 15 Units/L (13-39); BUN/Creatinine Ratio 24 (6-26); Bilirubin,Total 1.1 mg/dL (0.3-1.0); Blood Urea Nitrogen 24 mg/dL (6-20); Calcium 9.3 mg/dL (8.6-10.3); Carbon Dioxide 23 mEq/L (23-29); Chloride 106 mEq/L (98-107); Globulin 2.9 g/dL (2.4-3.5); Glucose 116 mg/dL (70-105); Magnesium 1.7 mg/dL (1.6-2.6); Osmolality,Calculated 293 (280-300); Phosphorous 2.8 mg/dL (2.7-4.5); Potassium 3.9 mEq/L (3.5-5.1); Sodium 139 mEq/L (136-145); Total Protein 6.7 g/dL (6.4-8.9); Troponin I 0.03 ng/mL (< 0.04); eGFR For African Americans > 60 (> 60); eGFR For Non-African Americans 58 (> 60)
[2021-05-30] MEDS: Sacubitril/Valsartan 24/26 MG 1 TABLET PO SCH (22:52)
[2021-05-30] MEDS: *HR* HYDROcodone/Acet 5/325 mg TABLET PO PRN (23:12)
[2021-05-31] MEDS: Ipratropium/Albuterol Neb 3 ML IH SCH ×6 (03:36→23:30)
[2021-05-31 05:40] LABS: Adenovirus Not Detected (Not Detect); Bordetella Pertussis Not Detected (Not Detect); Chlamydophila pneumoniae Not Detected (Not Detect); Coronavirus 229E Not Detected (Not Detect); Coronavirus HKU1 Not Detected (Not Detect); Coronavirus NL63 Not Detected (Not Detect); Coronavirus OC43 Not Detected (Not Detect); Human Metapneumovirus Not Detected (Not Detect); Human Rhinovirus/Enterovirus Not Detected (Not Detect); Influenza A Subtype 2009 H1 Not Detected (Not Detect); Influenza B Not Detected (Not Detect); Mycoplasma pneumoniae Not Detected (Not Detect); Parainfluenza Virus 1 Not Detected (Not Detect); Parainfluenza Virus 2 Not Detected (Not Detect); Parainfluenza Virus 3 Not Detected (Not Detect); Parainfluenza Virus 4 Not Detected (Not Detect); Respiratory Syncytial Virus Not Detected (Not Detect); SARS-CoV-2 Not Detected (Not Detect)
[2021-05-31 05:46] LABS: BUN/Creatinine Ratio 23 (6-26); Blood Urea Nitrogen 24 mg/dL (6-20); Calcium 9.3 mg/dL (8.6-10.3); Carbon Dioxide 27 mEq/L (23-29); Chloride 105 mEq/L (98-107); Glucose 116 mg/dL (70-105); Magnesium 1.8 mg/dL (1.6-2.6); Osmolality,Calculated 295 (280-300); Phosphorous 3.5 mg/dL (2.7-4.5); Potassium 4.1 mEq/L (3.5-5.1); Sodium 140 mEq/L (136-145); eGFR For African Americans > 60 (> 60); eGFR For Non-African Americans 54 (> 60)
[2021-05-31] MEDS: Cefepime HCl 2,000 MG in 0.9 % Sodium Chloride Mini Bag 100 ML IVPB SCH ×2 (05:58→17:36)
[2021-05-31] MEDS: *HR* Enoxaparin 40 MG/0.4 ML SYRINGE SQ SCH (05:58)
[2021-05-31 06:06] LABS: Hematocrit 43.7 % (35.3-44.9); Hemoglobin 13.9 g/dL (11.5-15.4); Mean Corpuscular HGB Conc 31.8 g/dL (31.6-35.5); Mean Corpuscular Hemoglobin 31.1 pg (28.0-33.3); Mean Corpuscular Volume 97.8 fL (83.0-100.0); Mean Platelet Volume 10.1 fL (9.4-12.4); Platelet Count 268 K/mcL (140-400); Red Blood Count 4.47 M/mcL (3.82-4.97); Red Cell Distribution Width 13.4 % (11.5-14.5)
[2021-05-31] MEDS: Furosemide 20 MG/2 ML VIAL IVP SCH (08:37)
[2021-05-31] MEDS: Aspirin Enteric Coated 81 MG Tablet PO SCH (08:37)
[2021-05-31] MEDS: Sacubitril/Valsartan 24/26 MG 1 TABLET PO SCH ×2 (08:37→19:47)
[2021-05-31] MEDS: Spironolactone 25 MG TABLET PO SCH (08:37)
[2021-05-31] MEDS: carvediloL 25 MG TABLET PO SCH ×2 (08:37→16:04)
[2021-05-31] MEDS: BuPROPion XL (24 HR) 150 MG TABLET PO SCH (08:37)
[2021-05-31] MEDS: Ondansetron ODT 4 MG TAB.RAPDIS SL PRN (08:39)
[2021-05-31] MEDS: *HR* HYDROcodone/Acet 5/325 mg TABLET PO PRN ×2 (08:40→19:47)
[2021-05-31] MEDS ORDERED: Vancomycin 1,250 MG/262.5 ML IV.SOLN IVPB SCH ×2 (16:00→23:00)
[2021-05-31] MEDS: Ondansetron 4 MG/2 ML VIAL IVP PRN (16:05)
[2021-05-31] MEDS: *HR* LORazepam 0.5 MG TABLET PO PRN (16:05)
[2021-05-31] MEDS: Furosemide 20 MG TABLET PO SCH (16:05)
[2021-05-31] MEDS: Melatonin 3 MG TABLET PO PRN (19:47)
[2021-06-01] MEDS: Ondansetron 4 MG/2 ML VIAL IVP PRN ×2 (03:08→18:29)
[2021-06-01] MEDS: *HR* HYDROcodone/Acet 5/325 mg TABLET PO PRN ×2 (03:09→18:30)
[2021-06-01] MEDS: Ipratropium/Albuterol Neb 3 ML IH SCH ×6 (03:38→23:34)
[2021-06-01] MEDS: Cefepime HCl 2,000 MG in 0.9 % Sodium Chloride Mini Bag 100 ML IVPB SCH (06:16)
[2021-06-01] MEDS: *HR* Enoxaparin 40 MG/0.4 ML SYRINGE SQ SCH (06:16)
[2021-06-01] MEDS ORDERED: *HR* Heparin 5,000 UNIT/ML VIAL IVP ONE (07:19)
[2021-06-01] MEDS ORDERED: *HR* Heparin 5,000 UNIT/ML VIAL IVP PRN ×2 (07:19)
[2021-06-01] MEDS ORDERED: Heparin 25,000UNIT/250ML 1/2NS 25,000 UNIT/250 ML IV.SOLN IVC SCH (07:30)
[2021-06-01] MEDS: Aspirin Enteric Coated 81 MG Tablet PO SCH (07:32)
[2021-06-01] MEDS: carvediloL 25 MG TABLET PO SCH ×3 (07:32→18:30)
[2021-06-01] MEDS: Spironolactone 25 MG TABLET PO SCH (07:32)
[2021-06-01] MEDS: Cyanocobalamin (B-12) 1,000 MCG TABLET PO SCH (07:33)
[2021-06-01] MEDS: BuPROPion XL (24 HR) 150 MG TABLET PO SCH (07:33)
[2021-06-01] MEDS: *HR* LORazepam 0.5 MG TABLET PO PRN ×2 (07:33→18:30)
[2021-06-01] MEDS: Sacubitril/Valsartan 24/26 MG 1 TABLET PO SCH ×2 (07:33→21:55)
[2021-06-01] MEDS: Furosemide 20 MG TABLET PO SCH ×3 (07:33→18:30)
[2021-06-01] MEDS: Aspirin 325 MG TABLET PO ONE ×2 (07:36→07:46)
[2021-06-01 08:32] LABS: BUN/Creatinine Ratio 28 (6-26); Blood Urea Nitrogen 22 mg/dL (6-20); Calcium 6.8 mg/dL (8.6-10.3); Carbon Dioxide 20 mEq/L (23-29); Chloride 116 mEq/L (98-107); Glucose 83 mg/dL (70-105); Osmolality,Calculated 296 (280-300); Potassium 3.4 mEq/L (3.5-5.1); Sodium 142 mEq/L (136-145); Troponin I < 0.03 ng/mL (< 0.04); eGFR For African Americans > 60 (> 60); eGFR For Non-African Americans > 60 (> 60)
[2021-06-01 09:43] LABS: Basophils # 0.1 K/mcL (0.0-0.2); Basophils % 0.9 %; Eosinophils # 0.3 K/mcL (0.0-0.6); Eosinophils % 4.5 %; Hematocrit 42.4 % (35.3-44.9); Hemoglobin 13.8 g/dL (11.5-15.4); Hemoglobin 13.9 g/dL (11.5-15.4); Immature Granulocytes % 0.5 % (0-4); Lymphocytes # 2.1 K/mcL (0.6-4.6); Lymphocytes % 32.2 %; Mean Corpuscular HGB Conc 32.5 g/dL (31.6-35.5); Mean Corpuscular HGB Conc 32.8 g/dL (31.6-35.5); Mean Corpuscular Hemoglobin 31.7 pg (28.0-33.3); Mean Corpuscular Hemoglobin 31.8 pg (28.0-33.3); Mean Corpuscular Volume 97.5 fL (83.0-100.0); Mean Platelet Volume 9.9 fL (9.4-12.4); Monocytes # 0.4 K/mcL (0.0-1.3); Monocytes % 6.8 %; Neutrophils # 3.6 K/mcL (1.6-8.9); Platelet Count 279 K/mcL (140-400); Platelet Count 287 K/mcL (140-400); Red Blood Count 4.35 M/mcL (3.82-4.97); Red Blood Count 4.37 M/mcL (3.82-4.97); Red Cell Distribution Width 13.3 % (11.5-14.5); Segmented Neutrophils % 55.1 %; White Blood Count 6.5 K/mcL (4.3-11.1)
[2021-06-01 09:57] LABS: INR 1.2; Prothrombin Time 13.7 Seconds (9.4-12.1)
[2021-06-01 10:01] LABS: Heparin anti-factor XA UFH 1.76 IU/mL (0.30-0.70)
[2021-06-01] MEDS: Acetaminophen 325 MG TABLET PO PRN (15:45)
[2021-06-01] MEDS: Cefepime HCl 2,000 MG in Water for inj. (sterile) 20 ML IVPB SCH (21:55)
[2021-06-01] MEDS: Melatonin 3 MG TABLET PO PRN (21:55)
[2021-06-01] MEDS ORDERED: Cefepime HCl 2,000 MG in Water for inj. (sterile) 20 ML IVPB SCH (22:00)
[2021-06-02 01:22] LABS: Basophils # 0.1 K/mcL (0.0-0.2); Eosinophils # 0.3 K/mcL (0.0-0.6); Immature Granulocytes % 0.9 % (0-4); Lymphocytes # 2.4 K/mcL (0.6-4.6); Mean Corpuscular HGB Conc 32.5 g/dL (31.6-35.5); Mean Corpuscular Hemoglobin 31.2 pg (28.0-33.3); Mean Corpuscular Volume 95.9 fL (83.0-100.0); Mean Platelet Volume 9.8 fL (9.4-12.4); Monocytes # 0.5 K/mcL (0.0-1.3); Monocytes % 6.6 %; Neutrophils # 3.5 K/mcL (1.6-8.9); Platelet Count 267 K/mcL (140-400); Red Blood Count 4.17 M/mcL (3.82-4.97); Red Cell Distribution Width 13.2 % (11.5-14.5); Segmented Neutrophils % 51.5 %; White Blood Count 6.8 K/mcL (4.3-11.1)
[2021-06-02 01:31] LABS: Calcium 9.4 mg/dL (8.6-10.3); Potassium 3.7 mEq/L (3.5-5.1)
[2021-06-02] MEDS: *HR* Enoxaparin 40 MG/0.4 ML SYRINGE SQ SCH (03:02)
[2021-06-02] MEDS: *HR* HYDROcodone/Acet 5/325 mg TABLET PO PRN ×2 (03:11→17:09)
[2021-06-02] MEDS: Ondansetron 4 MG/2 ML VIAL IVP PRN ×2 (03:12→22:26)
[2021-06-02] MEDS: Ipratropium/Albuterol Neb 3 ML IH SCH ×5 (05:08→20:29)
[2021-06-02] MEDS: Cefepime HCl 2,000 MG in Water for inj. (sterile) 20 ML IVPB SCH ×2 (09:15→22:26)
[2021-06-02] MEDS: Sacubitril/Valsartan 24/26 MG 1 TABLET PO SCH ×2 (09:16→22:25)
[2021-06-02] MEDS: Aspirin Enteric Coated 81 MG Tablet PO SCH (09:16)
[2021-06-02] MEDS: BuPROPion XL (24 HR) 150 MG TABLET PO SCH (09:16)
[2021-06-02] MEDS: Cyanocobalamin (B-12) 1,000 MCG TABLET PO SCH (09:17)
[2021-06-02] MEDS: Spironolactone 25 MG TABLET PO SCH (09:17)
[2021-06-02] MEDS: Furosemide 20 MG TABLET PO SCH ×2 (09:17→18:17)
[2021-06-02] MEDS: carvediloL 25 MG TABLET PO SCH ×2 (09:17→18:17)
[2021-06-02] MEDS ORDERED: *HR* Heparin 5,000 UNIT/ML VIAL SQ SCH (09:30)
[2021-06-02] MEDS: Acetaminophen 325 MG TABLET PO PRN ×2 (09:59→22:24)
[2021-06-02] MEDS: *HR* LORazepam 0.5 MG TABLET PO PRN (09:59)
[2021-06-02] MEDS: Isosorbide MONOnitrate (24 HR) 30 MG TAB.ER.24H PO SCH (09:59)
[2021-06-02] MEDS: *HR* Heparin 5,000 UNIT/ML VIAL SQ SCH (18:21)
[2021-06-02] MEDS: Melatonin 3 MG TABLET PO PRN (22:25)
[2021-06-03] MEDS: Ipratropium/Albuterol Neb 3 ML IH SCH ×4 (00:05→11:41)
[2021-06-03 02:45] LABS: Basophils # 0.1 K/mcL (0.0-0.2); Eosinophils # 0.4 K/mcL (0.0-0.6); Eosinophils % 6.4 %; Hematocrit 40.6 % (35.3-44.9); Hemoglobin 13.1 g/dL (11.5-15.4); Immature Granulocytes % 0.8 % (0-4); Lymphocytes # 1.9 K/mcL (0.6-4.6); Lymphocytes % 30.8 %; Mean Corpuscular HGB Conc 32.3 g/dL (31.6-35.5); Mean Corpuscular Hemoglobin 31.5 pg (28.0-33.3); Mean Corpuscular Volume 97.6 fL (83.0-100.0); Mean Platelet Volume 9.7 fL (9.4-12.4); Monocytes # 0.5 K/mcL (0.0-1.3); Monocytes % 7.5 %; Neutrophils # 3.3 K/mcL (1.6-8.9); Platelet Count 240 K/mcL (140-400); Red Blood Count 4.16 M/mcL (3.82-4.97); Red Cell Distribution Width 13.2 % (11.5-14.5); Segmented Neutrophils % 53.5 %; White Blood Count 6.1 K/mcL (4.3-11.1)
[2021-06-03 02:55] LABS: Calcium 9.4 mg/dL (8.6-10.3); Potassium 3.5 mEq/L (3.5-5.1)
[2021-06-03] MEDS ORDERED: Regadenoson 0.4 MG/5 ML SYRINGE IVP ONE (06:20)
[2021-06-03] MEDS: *HR* HYDROcodone/Acet 5/325 mg TABLET PO PRN ×2 (06:41→12:56)
[2021-06-03] MEDS: *HR* Heparin 5,000 UNIT/ML VIAL SQ SCH (06:41)
[2021-06-03] MEDS: carvediloL 25 MG TABLET PO SCH (09:55)
[2021-06-03] MEDS: Furosemide 20 MG TABLET PO SCH (09:55)
[2021-06-03] MEDS: Sacubitril/Valsartan 24/26 MG 1 TABLET PO SCH (09:55)
[2021-06-03] MEDS: Spironolactone 25 MG TABLET PO SCH (09:55)
[2021-06-03] MEDS: Isosorbide MONOnitrate (24 HR) 30 MG TAB.ER.24H PO SCH (09:55)
[2021-06-03] MEDS: Cefepime HCl 2,000 MG in Water for inj. (sterile) 20 ML IVPB SCH (09:56)
[2021-06-03] MEDS: Cyanocobalamin (B-12) 1,000 MCG TABLET PO SCH (09:56)
[2021-06-03] MEDS: Aspirin Enteric Coated 81 MG Tablet PO SCH (09:56)
[2021-06-03] MEDS: BuPROPion XL (24 HR) 150 MG TABLET PO SCH (09:56)
[2021-06-03 11:30] VITALS: BP 162/97; PULSE 97; TEMP 97.6
[2021-06-03 11:42] VITALS: O2SAT 95
== END 2021-06-03 16:15 | disposition home or self-care (01) | DRG 193 ==
LOC: 2NENU → SUATTDRO 14:10
PROVIDERS: ADMIT Internal Medicine; ATTEND Internal Medicine